=== PATIENT | male | born 1975 | race Caucasian/White ===

== ENCOUNTER 2021-04-23 07:54 | Emergency (ER) | payer BC ==
[2021-04-23 07:58] VITALS: BP 160/104; PULSE 97; RESP 20; TEMP 98.1
[2021-04-23] MEDS ORDERED: SULFAMETH-TMP DS STARTER PACK 2 TAB BTL PO STA (08:06)
--- NOTE | 2021-04-23 08:09 | ED ---
Skin/Abscess/FB HPI - General Chief complaint: Skin/Abscess/Foreign Body Stated complaint: infection on nose Time Seen by Provider: 04/23/21 07:58 Source: patient, RN notes reviewed Mode of arrival: ambulatory Limitations: no limitations - History of Present Illness Initial comments: 46-year-old male presents emergency from chief complaint of nose infection. Patient states started a few days ago. Patient was seen at [facility] and was given Keflex and Bactroban ointment. Patient states that it seems to be worsening. Patient states she's had a history of MRSA. Patient denies any fevers or chills no headache no dizziness no other complaints. - Related Data Previous Rx's Medication Instructions Recorded Sulfamethox-Tmp 800-160Mg [Bactrim 1 each PO Q12HR #20 tab 04/23/21 Ds] Allergies Allergy/AdvReac Type Severity Reaction Status Date / Time aspirin Allergy Rash/Hives Verified 04/23/21 07:58 ibuprofen [From Motrin] Allergy Rash/Hives Verified 04/23/21 07:59 Review of Systems ROS Statement: Those systems with pertinent positive or pertinent negative responses have been documented in the HPI. ROS Other: All systems not noted in ROS Statement are negative. Past Medical History Past Medical History: Diabetes Mellitus, Hypertension History of Any Multi-Drug Resistant Organisms: None Reported Past Surgical History: Orthopedic Surgery Past Psychological History: No Psychological Hx Reported Smoking Status: Never smoker Past Alcohol Use History: Occasional Past Drug Use History: Marijuana General Exam Limitations: no limitations General appearance: alert, in no apparent distress Head exam: Present: atraumatic, normocephalic, normal inspection Eye exam: Present: normal appearance, PERRL, EOMI. Absent: scleral icterus, conjunctival injection, periorbital swelling, periorbital tenderness ENT exam: Present: normal oropharynx, mucous membranes moist, TM's normal bilaterally. Absent: normal exam (Crusting, erythema the nose along the area of the nostrils) Neck exam: Present: normal inspection, full ROM. Absent: tenderness, meningismus, lymphadenopathy Respiratory exam: Present: normal lung sounds bilaterally. Absent: respiratory distress, wheezes, rales, rhonchi, stridor Cardiovascular Exam: Present: regular rate, normal rhythm, normal heart sounds. Absent: systolic murmur, diastolic murmur, rubs, gallop, clicks Course Vital Signs 04/23/21 07:55 Temperature 98.1 F Pulse Rate 97 Respiratory 20 Rate Blood Pressure 160/104 O2 Sat by Pulse 99 Oximetry Medical Decision Making - Medical Decision Making 46-year-old male presented nose infection. Patient has a history of MRSA was started on Bactrim. Patient has been Keflex with no improvement. There is concern as may relate to MRSA. Disposition Clinical Impression: Impetigo Disposition: HOME SELF-CARE Condition: Stable Instructions (If sedation given, give patient instructions): Impetigo (ED) Additional Instructions: Please return to the Emergency Department if symptoms worsen or any other concerns. Prescriptions: Sulfamethox-Tmp 800-160Mg [Bactrim Ds] 1 each PO Q12HR #20 tab Is patient prescribed a controlled substance at d/c from ED?: No Referrals: None,Stated [Primary Care Provider] - 1-2 days Time of Disposition: 08:09
== END 2021-04-23 08:27 | disposition home or self-care (01) ==
LOC: EC 07:54
DX: L01.00 Impetigo, unspecified (principal); I10 Essential (primary) hypertension; E11.9 Type 2 diabetes mellitus without complications; F12.90 Cannabis use, unspecified, uncomplicated
CPT/HCPCS: 99282

== ENCOUNTER 2022-05-06 14:58 | Emergency (ER) | payer BC, OTHER ==
[2022-05-06] MEDS ORDERED: MORPHINE SULFATE 4 MG/ML SYRINGE IV STA (17:38)
[2022-05-06] MEDS ORDERED: SODIUM CHLORIDE 0.9% 1,000 ML IV STA (17:38)
[2022-05-06 18:06] LABS: Basophils # (A) 0.1 k/uL (0-0.2); Basophils % (A) 1 %; Eosinophils # (A) 0.1 k/uL (0-0.7); Eosinophils % (A) 2 %; HCT 44.7 % (39.0-53.0); HGB 14.2 gm/dL (13.0-17.5); Hypochromasia Moderate; Lymphocytes # (A) 1.3 k/uL (1.0-4.8); Lymphocytes % (A) 25 %; MCH 28.7 pg (25.0-35.0); MCHC 31.7 g/dL (31.0-37.0); MCV 90.5 fL (80.0-100.0); Mean Platelet Volume 7.7; Monocytes # (A) 0.3 k/uL (0-1.0); Monocytes % (A) 5 %; Neutrophils # (A) 3.5 k/uL (1.3-7.7); Neutrophils % (A) 65 %; Platelet Count 190 k/uL (150-450); Poikilocytosis Slight; RBC 4.94 m/uL (4.30-5.90); RDW 14.6 % (11.5-15.5); WBC 5.4 k/uL (3.8-10.6)
[2022-05-06 18:17] LABS: INR 0.9 (<1.2); Partial Thromboplastin Time 26.7 sec (22.0-30.0); Prothrombin Time 9.9 sec (9.0-12.0)
[2022-05-06 18:19] LABS: ALT 29 U/L (4-49); AST 27 U/L (17-59); African American GFR (CKD) >90 (>60 ml/min/1.73 sqM); Albumin 4.1 g/dL (3.5-5.0); Alkaline Phosphatase 244 U/L (38-126); Amylase 45 U/L (30-110); Anion Gap 10 mmol/L; Blood Urea Nitrogen 22 mg/dL (9-20); Carbon Dioxide 27 mmol/L (22-30); Chloride 98 mmol/L (98-107); Glucose 343 mg/dL (74-99); Lipase 114 U/L (23-300); Non-African American GFR(CKD) >90 (>60 ml/min/1.73 sqM); Potassium 4.5 mmol/L (3.5-5.1); Sodium 135 mmol/L (137-145); Total Bilirubin 0.7 mg/dL (0.2-1.3); Total Protein 6.4 g/dL (6.3-8.2)
--- NOTE | 2022-05-06 19:54 | CT ---
EXAMINATION TYPE: CT thor lumbar spine w con DATE OF EXAM: 05/06/2022 COMPARISON: None HISTORY: back pain, radiculopathy CT DLP: 4823.4 mGycm Automated exposure control for dose reduction was used. CONTRAST: Performed with IV Contrast, patient injected with 100ml mL of Isovue 300. Images obtained from the level of T12-S1 vertebra with no contrast. The lumbar vertebrae are of normal alignment. Disc spaces are fairly normal. No compression fracture. No lumbar paraspinal mass. There is mild posterior calcified disc herniation at T12-L1. There is sim ilar change at L5-S1. No significant spinal stenosis. No focal bone destruction. Facet joints are int act. IMPRESSION: Chronic posterior disc herniations at T12-L1 and L5-S1 with calcification. No spinal stenosis. No acu te bony abnormality.
--- NOTE | 2022-05-06 20:04 | CT ---
EXAMINATION TYPE: CT abdomen pelvis w con DATE OF EXAM: 05/06/2022 COMPARISON: None HISTORY: abd pain CT DLP: 4823.4 mGycm Automated exposure control for dose reduction was used. CONTRAST: Performed with IV Contrast, patient injected with 100ml mL of Isovue 300. Images obtained from the diaphragm to the floor of the pelvis with the IV contrast. Lung bases are clear. No pleural effusion. Heart size is normal. No pericardial effusion. Liver spleen and stomach pancreas gallbladder appear intact. The bile ducts are nondilated. There is no adrenal mass. Kidneys have normal size and contour. No hydronephrosis. Ureters are not di lated. There is no retroperitoneal adenopathy. Delayed images show normal renal excretion. There is n o evidence of renal mass. Appendix is posterior and appears normal. Bladder distends smoothly. No ing uinal hernia. No free fluid in the pelvis. No pelvic mass. The lumbar vertebrae have normal alignment. No compression fracture. Bony pelvis is intact. The hip j oints are intact. Sacroiliac joints are intact. There is some hip joint space narrowing on the left s rita more than the right. There is acetabular spurring. There is no mesenteric edema. No ascites or free air. No bowel obstruction. IMPRESSION: Normal appendix. No renal stone or obstruction. There is some osteoarthritis left hip joint. No acute abnormality of the abdomen and pelvis.
--- NOTE | 2022-05-06 21:18 | ED ---
General Adult HPI - General Chief complaint: Abdominal Pain Stated complaint: Abdominal Pain Time Seen by Provider: 05/06/22 17:25 Source: patient, RN notes reviewed, old records reviewed Mode of arrival: ambulatory Limitations: no limitations - History of Present Illness Initial comments: Patient is a 47-year-old male who presents emergency Department complaining of abdominal pain/numbness. States that his a past medical history remarkable for diabetes, hypertension as well as chronic back pain presenting with left-sided pain that radiates around towards his epigastric region. States he does have a history of chronic back issues. Is concerned about a pinched nerve. States it is mildly painful but mostly has episodes of intermittent numbness. It has been present for approximate 5 days. Denies any nausea or vomiting. Denies diarrhea or change in stooling. Denies any chest pain, shortness of breath. Denies any fevers, chills, cough. Presents for further evaluation over concern for this atypical abdominal complaint. Uncertain what is causing it. Denies any recent heavy lifting or back injuries.Denies saddle anesthesias, urinary bowel incontinence or retention, lower extremity weakness or numbness. - Related Data Home Medications Medication Instructions Recorded Confirmed Gabapentin [Neurontin] 300 mg PO TID 05/06/22 05/06/22 Losartan Potassium [Cozaar] 100 mg PO DAILY 05/06/22 05/06/22 Piroxicam 10 mg PO DAILY 05/06/22 05/06/22 amLODIPine [Norvasc] 10 mg PO DAILY 05/06/22 05/06/22 metFORMIN HCL [Glucophage] 1,000 mg PO BID 05/06/22 05/06/22 Previous Rx's Medication Instructions Recorded Lidocaine 5% Patch [Lidoderm 5% 1 patch TOPICAL DAILY PRN 7 Days 05/06/22 Patch] #7 patch methocarbamoL [Robaxin-750] 750 mg PO TID PRN 7 Days #21 tab 05/06/22 Allergies Allergy/AdvReac Type Severity Reaction Status Date / Time aspirin Allergy Rash/Hives Verified 05/06/22 18:56 ibuprofen [From Motrin] Allergy Rash/Hives Verified 05/06/22 18:56 Review of Systems ROS Statement: Those systems with pertinent positive or pertinent negative responses have been documented in the HPI. Review of Systems: CONST: Denies fever EYES: Denies blurry vision ENT: Denies nasal congestion C/V: Denies Chest pain RESP: Denies shortness of breath GI: Endorses abdominal pain : Denies dysuria SKIN: Denies rash. MSK: Denies joint pain. NEURO: Denies headache ROS Other: All systems not noted in ROS Statement are negative. Past Medical History Past Medical History: Diabetes Mellitus, Hypertension History of Any Multi-Drug Resistant Organisms: None Reported Past Surgical History: Orthopedic Surgery Past Psychological History: No Psychological Hx Reported Smoking Status: Never smoker Past Alcohol Use History: Occasional Past Drug Use History: Marijuana General Exam - General Exam Comments Initial Comments: General: Appears in no acute distress. HEAD: Normal with no signs of head trauma. EYES: PERRLA, EOMI, conjunctiva normal, no discharge. ENT: Hearing grossly intact, normal oropharynx. RESPIRATORY: Clear breath sounds bilaterally. No wheezes, rales, or rhonchi. C/V: Regular rate and rhythm. S1 and S2 auscultated, no edema, peripheral pulses 2+ and intact throughout ABD: Abdomen is soft, nondistended. Mildly tender to palpation in the epiga stric region, along the inferior most rib radiate around the side of his abdomen towards the spine. No guarding. No peritoneal signs. No rebound tenderness. EXT: Normal range of motion, no obvious deformity no midline cervical, thoracic, lumbar spine tenderness to palpation. Mild paraspinal muscle tenderness palpation in the superior Thoracic and superior lumbar spines. SKIN: No rashes or lesions observed on exposed skin. NEURO: Alert and oriented 4. No focal sensory strength deficits. Limitations: no limitations Course Vital Signs 05/06/22 05/06/22 05/06/22 15:10 18:33 19:30 Temperature 98 F 98.5 F Pulse Rate 55 L 113 H 108 H Respiratory 20 19 14 Rate Blood Pressure 159/102 133/97 152/100 O2 Sat by Pulse 98 97 98 Oximetry 05/06/22 21:27 Temperature 98.1 F Pulse Rate 92 Respiratory 18 Rate Blood Pressure 143/89 O2 Sat by Pulse 97 Oximetry Medical Decision Making - Medical Decision Making Based on the patient's presentation and physical exam, patient appears to be have somewhat of a radiculopathy type of abdominal complaint I'm concerned for possible nerve compression or abdominal muscle wall injury. Cannot rule out intra-abdominal process. Did recommend we obtain CT imaging the abdomen and spine due to his body habitus an unreliable exam. He was in agreement this plan. Also recommended that we obtain abdominal laboratory studies. I will provide him with IV analgesia. He was in agreement with this plan. Screening EKG was obtained and showed no signs of ischemia. CT abdomen and p shanda revealed no acute intra-abdominal process. This osteoarthritis of left hip. Thoracolumbar CT revealed chronic posterior disc herniations at T12-L1 as well as L5-S1 with calcification. No spinal stenosis. No acute bony abnormality. Patient's laboratory studies are remarkable for a high potassium at 343 in the setting of diabetes, and a nonspecific elevated alk phos of 244. The remainder of the labs are unremarkable. On reevaluation, pain is improved. Vital signs are unchanged and within normal limits. I discussed the findings with the patient. There is no clear answer for his current symptoms. Recommended follow-up with his PCP. He expressed understanding. Strict return precautions were discussed. Does appear that he may be experiencing radiculopathy based on imaging, however findings seem to be chronic. I will provide the patient with a prescription for lidocaine patch, Robaxin. I instructed the patient to follow up with their PCP in the next 1-3 days. I explained that the patient should return to the emergency department if they experience any worsening symptoms. Strict return precautions were discussed with the patient. The patient expressed understanding of these instructions. I answered all questions that the patient had. The patient was discharged home in good condition with their prescriptions and follow up information. - Lab Data Result diagrams: 05/06/22 18:01 05/06/22 18:01 Lab Results 05/06/22 05/06/22 05/06/22 Range/Units 18:01 18:01 18:01 WBC 5.4 (3.8-10.6) k/uL RBC 4.94 (4.30-5.90) m/uL Hgb 14.2 (13.0-17.5) gm/dL Hct 44.7 (39.0-53.0) % MCV 90.5 (80.0-100.0) fL MCH 28.7 (25.0-35.0) pg MCHC 31.7 (31.0-37.0) g/dL RDW 14.6 (11.5-15.5) % Plt Count 190 (150-450) k/uL MPV 7.7 Neutrophils % 65 % Lymphocytes % 25 % Monocytes % 5 % Eosinophils % 2 % Basophils % 1 % Neutrophils # 3.5 (1.3-7.7) k/uL Lymphocytes # 1.3 (1.0-4.8) k/uL Monocytes # 0.3 (0-1.0) k/uL Eosinophils # 0.1 (0-0.7) k/uL Basophils # 0.1 (0-0.2) k/uL Hypochromasia Moderate Poikilocytosis Slight PT 9.9 (9.0-12.0) sec INR 0.9 (<1.2) APTT 26.7 (22.0-30.0) sec Sodium 135 L (137-145) mmol/L Potassium 4.5 (3.5-5.1) mmol/L Chloride 98 (98-107) mmol/L Carbon Dioxide 27 (22-30) mmol/L Anion Gap 10 mmol/L BUN 22 H (9-20) mg/dL Creatinine 0.85 (0.66-1.25) mg/dL Est GFR (CKD-EPI)AfAm >90 (>60 ml/min/1.73 sqM) Est GFR (CKD-EPI)NonAf >90 (>60 ml/min/1.73 sqM) Glucose 343 H (74-99) mg/dL Calcium 9.0 (8.4-10.2) mg/dL Total Bilirubin 0.7 (0.2-1.3) mg/dL AST 27 (17-59) U/L ALT 29 (4-49) U/L Alkaline Phosphatase 244 H (38-126) U/L Total Protein 6.4 (6.3-8.2) g/dL Albumin 4.1 (3.5-5.0) g/dL Amylase 45 (30-110) U/L Lipase 114 (23-300) U/L - EKG Data -: EKG Interpreted by Me EKG Comments: 12-lead Electrocardiogram Interpretation Note EKG was reviewed and interpreted by myself. 12-lead ECG performed at 1924 is interpreted by me as revealing sinus tachycardia at a rate of 106 beats per minute. [place] is normal. NE interval is 142 ms, QRS duration is 84 ms, QTc is 409 ms.. There were no ST or T wave abnormalities to suggest myocardial ischemia or injury. R wave progression across the precordium was satisfactory. By my interpretation this EKG is non-diagnostic for acute ischemia. Disposition Clinical Impression: Abdominal wall pain, Radiculopathy, Chronic back pain, Abdominal pain of unknown etiology Disposition: HOME SELF-CARE Condition: Good Instructions (If sedation given, give patient instructions): Paresthesia (ED) Additional Instructions: Suspect you are experiencing radicular nerve pain vs. abd pain of unknown origi n. Return if worsening symptoms. Follow up with your PCP in the next 2-3 days. Prescriptions: Lidocaine 5% Patch [Lidoderm 5% Patch] 1 patch TOPICAL DAILY PRN 7 Days #7 patch PRN Reason: Pain methocarbamoL [Robaxin-750] 750 mg PO TID PRN 7 Days #21 tab PRN Reason: Pain Is patient prescribed a controlled substance at d/c from ED?: No Referrals: None,Stated [Primary Care Provider] - 1-2 days Time of Disposition: 21:00
[2022-05-06 21:28] VITALS: BP 143/89; PULSE 92; RESP 18; TEMP 98.1
== END 2022-05-06 21:28 | disposition home or self-care (01) ==
LOC: EC 14:58
DX: R10.9 Unspecified abdominal pain (principal); M54.14 Radiculopathy, thoracic region; M54.9 Dorsalgia, unspecified; E11.9 Type 2 diabetes mellitus without complications; I10 Essential (primary) hypertension; F12.90 Cannabis use, unspecified, uncomplicated; Z88.6 Allergy status to analgesic agent; Z79.899 Other long term (current) drug therapy
CPT/HCPCS: 36415; 80053; 82150; 83690; 85025; 85610; 85730; 72129; 72132; 74177; 99284; 96374; 96361 ×3; J2270; Q9967

== ENCOUNTER 2022-05-08 10:26 | Inpatient (IN) | payer OTHER ==
[2022-05-08] MEDS ORDERED: SODIUM CHLORIDE 0.9% 500 ML 500 ML IV STA ×2 (10:47→15:35)
--- NOTE | 2022-05-08 10:51 | ED ---
General Adult HPI - General Chief complaint: Neuro Symptoms/Deficit Stated complaint: side pain Time Seen by Provider: 05/08/22 10:30 Source: patient, RN notes reviewed, old records reviewed Mode of arrival: ambulatory Limitations: no limitations - History of Present Illness Initial comments: This 47 her old male presents emergency Department complaining that his right eyelid shut is easily as the left one. Patient states this is been ongoing for 6 days. Patient states he also had some paced difference on the right side of his tongue for the last 6 days. Patient states this morning he woke up and noticed some facial droop of his lip on the right side as we decided to come to the emergency department. Patient denies headache. Patient denies any injury or trauma. He denies any weakness or numbness of any of his extremities. Patient denies any slurred speech. Patient denies any chest pain difficulty breathing shortness of breath. Patient denies any recent fever chills or cough. - Related Data Home Medications Medication Instructions Recorded Confirmed Gabapentin [Neurontin] 300 mg PO TID 05/06/22 05/08/22 Piroxicam 10 mg PO DAILY 05/06/22 05/08/22 metFORMIN HCL [Glucophage] 1,000 mg PO BID 05/06/22 05/08/22 [place]-3/Dha/Epa/Fish Oil [Fish Oil 1 cap PO DAILY 05/08/22 05/08/22 1,000 mg Softgel] Previous Rx's Medication Instructions Recorded Lidocaine 5% Patch [Lidoderm 5% 1 patch TOPICAL DAILY PRN 7 Days 05/06/22 Patch] #7 patch methocarbamoL [Robaxin-750] 750 mg PO TID PRN 7 Days #21 tab 05/06/22 Allergies Allergy/AdvReac Type Severity Reaction Status Date / Time aspirin Allergy Rash/Hives Verified 05/08/22 14:36 ibuprofen [From Motrin] Allergy Rash/Hives Verified 05/08/22 14:36 Review of Systems ROS Statement: Those systems with pertinent positive or pertinent negative responses have been documented in the HPI. ROS Other: All systems not noted in ROS Statement are negative. Past Medical History Past Medical History: Diabetes Mellitus, Hypertension History of Any Multi-Drug Resistant Organisms: None Reported Past Surgical History: Orthopedic Surgery Past Psychological History: No Psychological Hx Reported Smoking Status: Never smoker Past Alcohol Use History: Occasional Past Drug Use History: Marijuana General Exam - General Exam Comments Initial Comments: GENERAL: Patient is well-developed and well-nourished. Patient is nontoxic and well- hydrated and is in no acute distress. ENT: Neck is soft and supple. No significant lymphadenopathy is noted. Oropharynx is clear. Moist mucous membranes. Neck has full range of motion without eliciting any pain. EYES: The sclera were anicteric and conjunctiva were pink and moist. Extraocular movements were intact and pupils were equal round and reactive to light. Eyelids were unremarkable. PULMONARY: Unlabored respirations. Good breath sounds bilaterally. No audible rales rhonchi or wheezing was noted. CARDIOVASCULAR: There is a regular rate and rhythm without any murmurs gallops or rubs. ABDOMEN: Soft and nontender with normal bowel sounds. SKIN: Skin is clear with no lesions or rashes and otherwise unremarkable. NEUROLOGIC: Patient is alert and oriented x3. Patient has facial droop on the right side his eyelid is not short is quickly or easily as the left his forehead involvement and the right side of his face including his lip droop. Motor and sensory are also intact. Normal speech, volume and content. Symmetrical smile. MUSCULOSKELETAL: Normal extremities with adequate strength and full range of motion. LYMPHATICS: No significant lymphadenopathy is noted PSYCHIATRIC: Normal psychiatric evaluation. Limitations: no limitations Course Vital Signs 05/08/22 05/08/22 05/08/22 10:28 10:50 12:05 Temperature 97.9 F Pulse Rate 116 H 129 H 120 H Respiratory 18 18 18 Rate Blood Pressure 146/97 180/109 160/58 O2 Sat by Pulse 99 98 99 Oximetry 05/08/22 05/08/22 05/08/22 14:12 14:48 15:14 Temperature Pulse Rate 105 H 110 H 100 Respiratory 20 16 16 Rate Blood Pressure 167/102 182/97 159/91 O2 Sat by Pulse 99 99 99 Oximetry Medical Decision Making - Medical Decision Making EKG shows sinus tachycardia at 109 bpm GA interval 142 QRS is 95 Q-T intervals 335 QTC is 399. Patient's EKG shows no ST segment elevation or depression. CT of the brain shows no acute abnormality. Skin shows no acute abnormalities. Patient's heart rate at rest sleeping was 105 210 beats a minute. Patient had elevated blood pressure. Patient sugar close to 600 and patient states he does not have any medications at this time and doesn't feel comfortable going home. I spoke with Ean matta to hospice agreed to admit the patient and the patient wrote admitting orders. - Lab Data Result diagrams: 05/08/22 10:50 05/08/22 10:50 Lab Results 05/08/22 05/08/22 05/08/22 Range/Units 10:50 10:50 10:50 WBC 3.7 L (3.8-10.6) k/uL RBC 4.70 (4.30-5.90) m/uL Hgb 13.2 (13.0-17.5) gm/dL Hct 42.9 (39.0-53.0) % MCV 91.2 (80.0-100.0) fL MCH 28.1 (25.0-35.0) pg MCHC 30.9 L (31.0-37.0) g/dL RDW 14.6 (11.5-15.5) % Plt Count 157 (150-450) k/uL MPV 7.9 Neutrophils % 64 % Lymphocytes % 24 % Monocytes % 6 % Eosinophils % 2 % Basophils % 1 % Neutrophils # 2.4 (1.3-7.7) k/uL Lymphocytes # 0.9 L (1.0-4.8) k/uL Monocytes # 0.2 (0-1.0) k/uL Eosinophils # 0.1 (0-0.7) k/uL Basophils # 0.1 (0-0.2) k/uL Hypochromasia Marked Poikilocytosis Slight PT 9.6 (9.0-12.0) sec INR 0.9 (<1.2) APTT 25.5 (22.0-30.0) sec Sodium 132 L (137-145) mmol/L Potassium 4.6 (3.5-5.1) mmol/L Chloride 100 (98-107) mmol/L Carbon Dioxide 24 (22-30) mmol/L Anion Gap 8 mmol/L BUN 17 (9-20) mg/dL Creatinine 0.71 (0.66-1.25) mg/dL Est GFR (CKD-EPI)AfAm >90 (>60 ml/min/1.73 sqM) Est GFR (CKD-EPI)NonAf >90 (>60 ml/min/1.73 sqM) Glucose 592 H* (74-99) mg/dL POC Glucose (mg/dL) (70-110) mg/dL POC Glu Ticketer ID Calcium 8.8 (8.4-10.2) mg/dL Total Bilirubin 0.7 (0.2-1.3) mg/dL AST 28 (17-59) U/L ALT 26 (4-49) U/L Alkaline Phosphatase 278 H (38-126) U/L Troponin I (0.000-0.034) ng/mL Total Protein 5.8 L (6.3-8.2) g/dL Albumin 3.5 (3.5-5.0) g/dL Urine Opiates Screen (NotDetected) Ur Oxycodone Screen (NotDetected) Urine Methadone Screen (NotDetected) Ur Propoxyphene Screen (NotDetected) Ur Barbiturates Screen (NotDetected) U Tricyclic Antidepress (NotDetected) Ur Phencyclidine Scrn (NotDetected) Ur Amphetamines Screen (NotDetected) U Methamphetamines Scrn (NotDetected) U Benzodiazepines Scrn (NotDetected) Urine Cocaine Screen (NotDetected) U Marijuana (THC) Screen (NotDetected) 05/08/22 05/08/22 05/08/22 Range/Units 10:50 12:38 13:53 WBC (3.8-10.6) k/uL RBC (4.30-5.90) m/uL Hgb (13.0-17.5) gm/dL Hct (39.0-53.0) % MCV (80.0-100.0) fL MCH (25.0-35.0) pg MCHC (31.0-37.0) g/dL RDW (11.5-15.5) % Plt Count (150-450) k/uL MPV Neutrophils % % Lymphocytes % % Monocytes % % Eosinophils % % Basophils % % Neutrophils # (1.3-7.7) k/uL Lymphocytes # (1.0-4.8) k/uL Monocytes # (0-1.0) k/uL Eosinophils # (0-0.7) k/uL Basophils # (0-0.2) k/uL Hypochromasia Poikilocytosis PT (9.0-12.0) sec INR (<1.2) APTT (22.0-30.0) sec Sodium (137-145) mmol/L Potassium (3.5-5.1) mmol/L Chloride (98-107) mmol/L Carbon Dioxide (22-30) mmol/L Anion Gap mmol/L BUN (9-20) mg/dL Creatinine (0.66-1.25) mg/dL Est GFR (CKD-EPI)AfAm (>60 ml/min/1.73 sqM) Est GFR (CKD-EPI)NonAf (>60 ml/min/1.73 sqM) Glucose (74-99) mg/dL POC Glucose (mg/dL) 479 H 386 H (70-110) mg/dL POC Glu Ticketer ID Deisi, Casimiro [place], Casimiro Calcium (8.4-10.2) mg/dL Total Bilirubin (0.2-1.3) mg/dL AST (17-59) U/L ALT (4-49) U/L Alkaline Phosphatase (38-126) U/L Troponin I <0.012 (0.000-0.034) ng/mL Total Protein (6.3-8.2) g/dL Albumin (3.5-5.0) g/dL Urine Opiates Screen (NotDetected) Ur Oxycodone Screen (NotDetected) Urine Methadone Screen (NotDetected) Ur Propoxyphene Screen (NotDetected) Ur Barbiturates Screen (NotDetected) U Tricyclic Antidepress (NotDetected) Ur Phencyclidine Scrn (NotDetected) Ur Amphetamines Screen (NotDetected) U Methamphetamines Scrn (NotDetected) U Benzodiazepines Scrn (NotDetected) Urine Cocaine Screen (NotDetected) U Marijuana (THC) Screen (NotDetected) 05/08/22 Range/Units 15:32 WBC (3.8-10.6) k/uL RBC (4.30-5.90) m/uL Hgb (13.0-17.5) gm/dL Hct (39.0-53.0) % MCV (80.0-100.0) fL MCH (25.0-35.0) pg MCHC (31.0-37.0) g/dL RDW (11.5-15.5) % Plt Count (150-450) k/uL MPV Neutrophils % % Lymphocytes % % Monocytes % % Eosinophils % % Basophils % % Neutrophils # (1.3-7.7) k/uL Lymphocytes # (1.0-4.8) k/uL Monocytes # (0-1.0) k/uL Eosinophils # (0-0.7) k/uL Basophils # (0-0.2) k/uL Hypochromasia Poikilocytosis PT (9.0-12.0) sec INR (<1.2) APTT (22.0-30.0) sec Sodium (137-145) mmol/L Potassium (3.5-5.1) mmol/L Chloride (98-107) mmol/L Carbon Dioxide (22-30) mmol/L Anion Gap mmol/L BUN (9-20) mg/dL Creatinine (0.66-1.25) mg/dL Est GFR (CKD-EPI)AfAm (>60 ml/min/1.73 sqM) Est GFR (CKD-EPI)NonAf (>60 ml/min/1.73 sqM) Glucose (74-99) mg/dL POC Glucose (mg/dL) (70-110) mg/dL POC Glu Ticketer ID Calcium (8.4-10.2) mg/dL Total Bilirubin (0.2-1.3) mg/dL AST (17-59) U/L ALT (4-49) U/L Alkaline Phosphatase (38-126) U/L Troponin I (0.000-0.034) ng/mL Total Protein (6.3-8.2) g/dL Albumin (3.5-5.0) g/dL Urine Opiates Screen Not Detected (NotDetected) Ur Oxycodone Screen Not Detected (NotDetected) Urine Methadone Screen Not Detected (NotDetected) Ur Propoxyphene Screen Not Detected (NotDetected) Ur Barbiturates Screen Not Detected (NotDetected) U Tricyclic Antidepress Not Detected (NotDetected) Ur Phencyclidine Scrn Not Detected (NotDetected) Ur Amphetamines Screen Not Detected (NotDetected) U Methamphetamines Scrn Not Detected (NotDetected) U Benzodiazepines Scrn Not Detected (NotDetected) Urine Cocaine Screen Not Detected (NotDetected) U Marijuana (THC) Screen Not Detected (NotDetected) Disposition Clinical Impression: Facial droop, Hypertension, Hyperglycemia, Tachycardia Disposition: ADMITTED IP TO THIS HOSP Referrals: None,Stated [Primary Care Provider] - 1-2 days Time of Disposition: 15:56
[2022-05-08 11:09] LABS: Basophils # (A) 0.1 k/uL (0-0.2); Basophils % (A) 1 %; Eosinophils # (A) 0.1 k/uL (0-0.7); Eosinophils % (A) 2 %; HCT 42.9 % (39.0-53.0); HGB 13.2 gm/dL (13.0-17.5); Hypochromasia Marked; Lymphocytes # (A) 0.9 k/uL (1.0-4.8); Lymphocytes % (A) 24 %; MCH 28.1 pg (25.0-35.0); MCHC 30.9 g/dL (31.0-37.0); MCV 91.2 fL (80.0-100.0); Mean Platelet Volume 7.9; Monocytes # (A) 0.2 k/uL (0-1.0); Monocytes % (A) 6 %; Neutrophils # (A) 2.4 k/uL (1.3-7.7); Neutrophils % (A) 64 %; Platelet Count 157 k/uL (150-450); Poikilocytosis Slight; RDW 14.6 % (11.5-15.5); WBC 3.7 k/uL (3.8-10.6)
--- NOTE | 2022-05-08 11:13 | XR ---
EXAMINATION TYPE: XR chest 2V DATE OF EXAM: 05/08/2022 11:05 AM COMPARISON: None TECHNIQUE: XR chest 2V two-view. CLINICAL INDICATION:Male, 47 years old with history of altered mental status; FINDINGS: Lungs/Pleura: Low lung volumes are present. There is no evidence of pleural effusion, focal consolida tion, or pneumothorax. Pulmonary vascularity: Unremarkable. Heart/mediastinum: Cardiomediastinal silhouette is unremarkable. Musculoskeletal: No acute osseous pathology. IMPRESSION: No acute cardiopulmonary disease/process.
--- NOTE | 2022-05-08 11:16 | CT ---
EXAMINATION TYPE: CT brain wo con CT DLP: 1095.4 mGycm, Automated exposure control for dose reduction was used. DATE OF EXAM: 05/08/2022 11:05 AM COMPARISON: None. CLINICAL INDICATION:Male, 47 years old with history of Neuro deficit, acute, stroke suspected, Right eye droop and right tongue/mouth numbness TECHNIQUE: Brain: Axial CT images of the brain were obtained with coronal and sagittal reformats created and rev iewed. Contrast used: None. Oral contrast used: None. FINDINGS: Brain: Extra-axial spaces: No abnormal extra-axial fluid collections. Ventricular system: Within normal limits Cerebral parenchyma: No acute intraparenchymal hemorrhage or mass effect. The ford-white junction is well differentiated. Cerebellum: Unremarkable. Mass effect: No evidence of midline shift. Intracranial vasculature: Atherosclerotic calcifications of the intracranial vessels. Soft tissues: Normal. Calvarium/osseous structures: No depressed skull fracture. Paranasal sinuses and mastoid air cells: Mild scattered paranasal sinus disease. Visualized orbits: Orbital contents are intact. IMPRESSION: No acute intracranial process.
[2022-05-08 11:18] LABS: ALT 26 U/L (4-49); AST 28 U/L (17-59); African American GFR (CKD) >90 (>60 ml/min/1.73 sqM); Albumin 3.5 g/dL (3.5-5.0); Alkaline Phosphatase 278 U/L (38-126); Anion Gap 8 mmol/L; Blood Urea Nitrogen 17 mg/dL (9-20); Calcium 8.8 mg/dL (8.4-10.2); Carbon Dioxide 24 mmol/L (22-30); Chloride 100 mmol/L (98-107); Non-African American GFR(CKD) >90 (>60 ml/min/1.73 sqM); Potassium 4.6 mmol/L (3.5-5.1); Sodium 132 mmol/L (137-145); Total Bilirubin 0.7 mg/dL (0.2-1.3); Total Protein 5.8 g/dL (6.3-8.2)
[2022-05-08 11:21] LABS: Glucose 592 mg/dL (74-99)
[2022-05-08] MEDS ORDERED: INSULIN ASPART (NovoLOG) 100 UNIT/ML VIAL SQ ONE (11:23)
[2022-05-08 11:26] LABS: INR 0.9 (<1.2); Partial Thromboplastin Time 25.5 sec (22.0-30.0); Prothrombin Time 9.6 sec (9.0-12.0)
[2022-05-08] MEDS ORDERED: SODIUM CHLORIDE 0.9% 1,000 ML IV STA (12:15)
[2022-05-08 12:46] LABS: Glucose,Whole Blood 479 mg/dL (70-110)
[2022-05-08 13:55] LABS: Glucose,Whole Blood 386 mg/dL (70-110)
[2022-05-08] MEDS ORDERED: GABAPENTIN 300 MG CAP PO STA (13:56)
[2022-05-08] MEDS ORDERED: HYDROmorphone 0.5 MG/0.5 ML SYRINGE IVP STA (14:12)
[2022-05-08] MEDS ORDERED: hydrALAZINE HCL 20 MG/ML 1 ML VIAL IVP STA ×2 (14:12→16:08)
[2022-05-08 15:47] LABS: Amphetamine Screen,Urine Not Detected (NotDetected); Barbiturate Screen,Urine Not Detected (NotDetected); Benzodiazepines Screen,Urine Not Detected (NotDetected); Cocaine Screen,Urine Not Detected (NotDetected); Methadone Screen, Urine Not Detected (NotDetected); Opiate Screen,Urine Not Detected (NotDetected); Oxycodone Screen, Urine Not Detected (NotDetected); Phencyclidine Screen,Urine Not Detected (NotDetected); Tricyclic Antidepressant,Urine Not Detected (NotDetected); Urn Cannabinoid Scrn Not Detected (NotDetected)
[2022-05-08 16:09] LABS: Glucose,Whole Blood 323 mg/dL (70-110)
[2022-05-08] MEDS ORDERED: DEXTROSE 50% SYRINGE 50 ML IVP PRN ×2 (16:11)
[2022-05-08] MEDS: valACYclovir HCL 1,000 MG TABLET PO SCH ×2 (18:35→21:56)
[2022-05-08 18:41] LABS: Glucose,Whole Blood 283 mg/dL (70-110)
[2022-05-08] MEDS: INSULIN ASPART (NovoLOG) 100 UNIT/ML VIAL SQ SCH ×3 (18:51→21:32)
[2022-05-08 19:46] LABS: Glucose,Whole Blood 299 mg/dL (70-110)
[2022-05-08] MEDS: metFORMIN 500 MG TAB PO SCH (21:31)
[2022-05-08] MEDS: GABAPENTIN 300 MG CAP PO SCH (21:32)
[2022-05-08] MEDS: HYDROcodone/APAP 5-325MG 1 EACH TAB PO PRN (21:33)
[2022-05-09] MEDS: HYDROcodone/APAP 5-325MG 1 EACH TAB PO PRN (04:13)
[2022-05-09 05:56] LABS: Glucose,Whole Blood 278 mg/dL (70-110)
[2022-05-09] MEDS: valACYclovir HCL 1,000 MG TABLET PO SCH (08:51)
[2022-05-09] MEDS: metFORMIN 500 MG TAB PO SCH (08:51)
[2022-05-09] MEDS: GABAPENTIN 300 MG CAP PO SCH (08:51)
[2022-05-09] MEDS: INSULIN ASPART (NovoLOG) 100 UNIT/ML VIAL SQ SCH ×3 (08:51→12:30)
[2022-05-09] MEDS ORDERED: amLODIPine 10 MG TAB PO SCH (09:00)
[2022-05-09] MEDS ORDERED: SODIUM CHLORIDE 0.9% 1,000 ML IV SCH (10:00)
[2022-05-09] MEDS ORDERED: LOSARTAN 50 MG TAB PO SCH (10:15)
[2022-05-09 10:33] VITALS: TEMP 97.6
[2022-05-09 11:42] LABS: Glucose,Whole Blood 297 mg/dL (70-110)
[2022-05-09] MEDS ORDERED: ARTIFICIAL TEARS OINTMENT 3.5 GM TUBE BOTH EYES PRN (11:53)
--- NOTE | 2022-05-09 12:00 | P.HPIM ---
History of Present Illness Patient is a pleasant 47-year-old male came in with complaints of unable to close his right eyelid facial droop right earache and loss of taste sensation in the time. 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 Patient doesn't have any lesions consistent with herpes. Patient is also found to have highly elevated blood sugars as patient has not been complaint with his medications due to noncoverage for some of his diabetic medications by his insurance. Patient the stopped checking the blood sugars as well. Patient also having significant back pain patient has history of spinal stenosis. Patient has a continuous glucose monitor which she stopped using because of pain related to placement of this device. Patient denied any fever chills. Patient is also hypertensive. Patient has been taking quite a bit of gabapentin because of his neuropathic symptoms from his spinal stenosis. Patient has been taking metformin. REVIEW OF SYSTEMS: CONSTITUTIONAL: No fever, no malaise, no fatigue. HEENT: No recent visual problems or hearing problems. Denied any sore throat. CARDIOVASCULAR: No chest pain, orthopnea, PND, no palpitations, no syncope. PULMONARY: No shortness of breath, no cough, no hemoptysis. GASTROINTESTINAL: No diarrhea, no nausea, no vomiting, no abdominal pain. NEUROLOGICAL: As mentioned above HEMATOLOGICAL: Denies any bleeding or petechiae. GENITOURINARY: Denies any burning micturition, frequency, or urgency. MUSCULOSKELETAL/RHEUMATOLOGICAL: Denies any joint pain, swelling, or any muscle pain. ENDOCRINE: Denies any polyuria or polydipsia. The rest of the 14-point review of systems is negative. PHYSICAL EXAMINATION: GENERAL: The patient is alert and oriented x3, not in any acute distress. Well developed, well nourished. HEENT: Pupils are round and equally reacting to light. EOMI. No scleral icterus. No conjunctival pallor. Normocephalic, atraumatic. No pharyngeal erythema. No thyromegaly. CARDIOVASCULAR: S1 and S2 present. No murmurs, rubs, or gallops. PULMONARY: Chest is clear to auscultation, no wheezing or crackles. ABDOMEN: Soft, nontender, nondistended, normoactive bowel sounds. No palpable or ganomegaly. MUSCULOSKELETAL: No joint swelling or deformity. EXTREMITIES: No cyanosis, clubbing, or pedal edema. NEUROLOGICAL: Facial droop some of the neurodeficits as mentioned in HPI SKIN: No rashes. 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 Considering his highly irritable blood sugars and will not use any steroid at this time. -Type 2 diabetes mellitus uncontrolled highly elevated blood sugars secondary to noncompliance patient will be started empirically on 30 units of Lantus along with 8 units with the each meal and patient will let continue his continuous blood glucose monitoring patient will be referred to PCP and endocrinology as an outpatient -Chronic back pain with history of spinal stenosis patient will be referred to spinal surgeon as an outpatient -Hypertension next and-obesity counseling was provided regarding weight loss. Patient did lose 30 pounds this summer. Patient probably will be discharged later today if cleared by neurology. Past Medical History Past Medical History: Diabetes Mellitus, Hyperlipidemia, Hypertension History of Any Multi-Drug Resistant Organisms: None Reported Past Surgical History: Orthopedic Surgery Additional Past Surgical History / Comment(s): Had L thumb reattached as a kid. Additional Past Anesthesia/Blood Transfusion Reaction / Comment(s): No hx of blood transfusion Past Psychological History: No Psychological Hx Reported Smoking Status: Never smoker Past Alcohol Use History: Occasional Additional Past Alcohol Use History / Comment(s): Social Drinker Past Drug Use History: Marijuana Additional Drug Use History / Comment(s): "I take 3-4 puffs from my pen, 3-4 days a week, usually at night to help me sleep d/t pain." - Past Family History Father Family Medical History: Congestive Heart Failure (CHF), Diabetes Mellitus, Hypertension Mother Family Medical History: Hypertension Additional Family Medical History / Comment(s): Patients Grandmother had first CVA at 38, CVA at 43. Patients Aunt on mothers side has had multiple PEs and DVTs Brother(s) Family Medical History: CVA/TIA Additional Family Medical History / Comment(s): CVA at 44 Sister(s) Family Medical History: No Reported History Medications and Allergies Home Medications Medication Instructions Recorded Confirmed Type Gabapentin [Neurontin] 300 mg PO TID 05/06/22 05/08/22 History Lidocaine 5% Patch [Lidoderm 5% 1 patch TOPICAL DAILY PRN 7 Days 05/06/22 05/08/22 Rx Patch] #7 patch Piroxicam 10 mg PO DAILY 05/06/22 05/08/22 History metFORMIN HCL [Glucophage] 1,000 mg PO BID 05/06/22 05/08/22 History methocarbamoL [Robaxin-750] 750 mg PO TID PRN 7 Days #21 tab 05/06/22 05/08/22 Rx [employer]-3/Dha/Epa/Fish Oil [Fish Oil 1 cap PO DAILY 05/08/22 05/08/22 History 1,000 mg Softgel] Allergies Allergy/AdvReac Type Severity Reaction Status Date / Time aspirin Allergy Rash/Hives Verified 05/08/22 14:36 ibuprofen [From Motrin] Allergy Rash/Hives Verified 05/08/22 14:36 Physical Exam Vitals: Vital Signs Temp Pulse Pulse Resp BP BP Pulse Ox 05/09/22 08:00 97.6 F 91 18 125/79 100 05/09/22 07:57 99 05/09/22 04:00 98.1 F 97 20 135/85 99 05/08/22 23:40 99.3 F 99 18 137/89 97 05/08/22 21:55 161/92 05/08/22 20:55 98.9 F 101 H 20 168/97 99 05/08/22 17:00 98.6 F 109 H 20 148/88 99 05/08/22 16:55 102 H 20 165/98 98 05/08/22 16:31 102 H 16 184/96 98 05/08/22 15:14 100 16 159/91 99 05/08/22 14:48 110 H 16 182/97 99 05/08/22 14:12 105 H 20 167/102 99 05/08/22 12:05 120 H 18 160/58 99 Intake and Output 05/08/22 05/09/22 05/09/22 22:59 06:59 14:59 Intake Total 610 618 Balance 610 618 Intake: IV 10 Invasive Line 1 10 Oral 600 618 Other: Voiding Method Toilet Toilet Toilet # Voids 1 Weight 139.1 kg Results CBC & Chem 7: 05/08/22 10:50 05/08/22 10:50 Labs: Abnormal Lab Results - Last 24 Hours (Table) 05/08/22 05/08/22 05/08/22 Range/Units 10:50 12:38 13:53 POC Glucose (mg/dL) 479 H 386 H (70-110) mg/dL Hemoglobin A1c 10.9 H (0.0-6.0) % Triglycerides (0.00-149.00) mg/dL VLDL Cholesterol, Calc (5.00-40.00) mg/dL HDL Cholesterol (40.00-60.00) mg/dL 05/08/22 05/08/22 05/08/22 Range/Units 16:06 18:39 18:40 POC Glucose (mg/dL) 323 H 283 H (70-110) mg/dL Hemoglobin A1c 10.9 H (0.0-6.0) % Triglycerides (0.00-149.00) mg/dL VLDL Cholesterol, Calc (5.00-40.00) mg/dL HDL Cholesterol (40.00-60.00) mg/dL 05/08/22 05/09/22 05/09/22 Range/Units 19:44 05:52 06:14 POC Glucose (mg/dL) 299 H 278 H (70-110) mg/dL Hemoglobin A1c (0.0-6.0) % Triglycerides 302.00 H (0.00-149.00) mg/dL VLDL Cholesterol, Calc 60.40 H (5.00-40.00) mg/dL HDL Cholesterol 12.60 L (40.00-60.00) mg/dL 05/09/22 Range/Units 11:35 POC Glucose (mg/dL) 297 H (70-110) mg/dL Hemoglobin A1c (0.0-6.0) % Triglycerides (0.00-149.00) mg/dL VLDL Cholesterol, Calc (5.00-40.00) mg/dL HDL Cholesterol (40.00-60.00) mg/dL Thrombosis Risk Factor Assmnt - Choose All That Apply Each Factor Represents 1 point: Age 41-60 years, Obesity (BMI >25) Other Risk Factors: Yes Each Risk Factor Represents 3 Points: Family history of DVT/PE Other congenital or acquired thrombophilia - If yes, enter type in comment: No Thrombosis Risk Factor Assessment Total Risk Factor Score: 5 Thrombosis Risk Factor Assessment Level: High Risk
--- NOTE | 2022-05-09 12:09 | P.DS ---
Providers Date of admission: 05/08/22 15:58 Attending physician: Melany Henley Consults: 05/08/22 16:05 Consult Physician Routine Consulting Provider: Hayden Nicole Consult Reason/Comments: Facial droop Do you want consulting provider notified?: Yes Primary care physician: Stated None Hospital Course: Refer to my history of present illness for further details Plan - Discharge Summary Discharge Rx Participant: No New Discharge Prescriptions: New Losartan [Cozaar] 50 mg PO DAILY #30 tab INSULIN ASPART (NovoLOG) [NovoLOG (formulary)] 8 unit SQ AC-TID #5 pen Insulin Glargine,Hum.rec.anlog [Lantus Solostar Pen] 30 units SQ DAILY #5 pen HYDROcodone/APAP 5-325MG [[place] 5-325] 1 each PO Q8HR PRN #20 tab PRN Reason: Pain Artificial Tears Ointment [Lubrifresh Pm Ointment] 1 gm OPHTHALMIC QID #3.5 gm INSULIN ASPART (NovoLOG) [NovoLOG (formulary)] 0 unit SQ ACHS #1 pen Continue metFORMIN HCL [Glucophage] 1,000 mg PO BID Piroxicam 10 mg PO DAILY Gabapentin [Neurontin] 300 mg PO TID Lidocaine 5% Patch [Lidoderm 5% Patch] 1 patch TOPICAL DAILY PRN 7 Days #7 patch PRN Reason: Pain methocarbamoL [Robaxin-750] 750 mg PO TID PRN 7 Days #21 tab PRN Reason: Pain [place]-3/Dha/Epa/Fish Oil [Fish Oil 1,000 mg Softgel] 1 cap PO DAILY Discharge Medication List Gabapentin [Neurontin] 300 mg PO TID 05/06/22 [History] Lidocaine 5% Patch [Lidoderm 5% Patch] 1 patch TOPICAL DAILY PRN 7 Days #7 patch 05/06/22 [Rx] Piroxicam 10 mg PO DAILY 05/06/22 [History] metFORMIN HCL [Glucophage] 1,000 mg PO BID 05/06/22 [History] methocarbamoL [Robaxin-750] 750 mg PO TID PRN 7 Days #21 tab 05/06/22 [Rx] [place]-3/Dha/Epa/Fish Oil [Fish Oil 1,000 mg Softgel] 1 cap PO DAILY 05/08/22 [History] Artificial Tears Ointment [Lubrifresh Pm Ointment] 1 gm OPHTHALMIC QID #3.5 gm 05/09/22 [Rx] HYDROcodone/APAP 5-325MG [[place] 5-325] 1 each PO Q8HR PRN #20 tab 05/09/22 [Rx] INSULIN ASPART (NovoLOG) [NovoLOG (formulary)] 0 unit SQ ACHS #1 pen 05/09/22 [Rx] INSULIN ASPART (NovoLOG) [NovoLOG (formulary)] 8 unit SQ AC-TID #5 pen 05/09/22 [Rx] Insulin Glargine,Hum.rec.anlog [Lantus Solostar Pen] 30 units SQ DAILY #5 pen 05/09/22 [Rx] Losartan [Cozaar] 50 mg PO DAILY #30 tab 05/09/22 [Rx] Follow up Appointment(s)/Referral(s): Camille Bhakta MD [STAFF PHYSICIAN] - 1 Week Aden Israel DO [Doctor of Osteopathic Medicine] - 1 Week Chuy Mulligan MD [REFERRING] - 1 Week Discharge Disposition: HOME SELF-CARE
[2022-05-09] MEDS ORDERED: INSULIN ASPART (NovoLOG) 100 UNIT/ML VIAL SQ SCH (12:30)
[2022-05-09 12:38] VITALS: BMI 42.7
--- NOTE | 2022-05-09 12:47 | P.CNNES ---
History of Present Illness Consult date: 05/09/22 Requesting physician: Kenan Cope Reason for Consult: Facial droop History of Present Illness: Patient is a 47-year-old male, with history of diabetes, not well controlled, came to the hospital yesterday at 10:26 AM for possible right facial weakness. Patient states that about 1-1/2 weeks ago, he noticed problem with taste sensation, as everything tasted bland. Around the same time, he also noticed his hearing was muffled, right ear more than left. About 4 or 5 days ago, he noticed pain in the retro-auricular region. he denies any recent flu or cold- like symptoms. Patient states that he came to the hospital on Monday, because of worsening of back pain, numbness of the left abdominal region. he was diag nosed with abdominal wall pain, radiculopathy, chronic back pain. Patient states that it was noticed in the ER that he was not closing his right eye as well. He was released home. He slept most of Monday. Monday morning he also noticed that he has droopy right lower lip. Therefore he came back to the hospital. Patient denies any problem with balance, any focal weakness of the extremities, problem with the vision, slurred speech. He does have history of hypertension, diabetes for last 10 years, which is not well controlled. He states that metformin is is not helping, and the medication Trulicity he cannot afford. Vital signs on arrival blood pressure 146/97, pulse regular and 16, temperature 97.9 Patient's blood test shows WBC count 3.7 hemoglobin 13.2, platelets 157. PT/PTT normal. Sodium 132 potassium 4.6, normal renal functions. Blood glucose 592. Hepatic panel normal, troponin negative. Patient's hemoglobin A1c 10.9, lactate 0.9, urine drug screen negative. CT head showed no acute process. I personally review CT head, and agree with the findings. Mild mucosal thickening of the left maxillary sinus. There is evidence of an old lacune involving the left basal ganglia. EKG shows sinus tachycardia. Chest x-ray showed no acute cardiopulmonary disease. Patient's home medications include metformin, piroxicam 10 mg, gabapentin 300 mg 3 times a day, Lidoderm 5% patch, Robaxin 750 mg, fish oil. Patient says that he has positive family history of strokes, in his maternal grandmother who had a stroke at age 38 and his brother, who had stroke at age 44. Patient denies any tobacco use. Patient also tells me that about one year ago, he developed weakness and numbness of the entire right upper extremity. His hand was so weak that he could not open the pop bottle. The symptoms lasted for about 1 month and then the symptoms went away. Currently he has no symptoms in his right arm. Suspect, could be a small stroke at that time. Review of Systems patient states he had transient tingling in the tongue, which has resolved. Denies any chest pain, shortness of breath, wheezing or cough. No fever or chills. Patient denies any significant neck pain. He does have back pain. All other review of systems reviewed, and unremarkable, except above and as per HPI. Past Medical History Past Medical History: Diabetes Mellitus, Hyperlipidemia, Hypertension History of Any Multi-Drug Resistant Organisms: None Reported Past Surgical History: Orthopedic Surgery Additional Past Surgical History / Comment(s): Had L thumb reattached as a kid. Additional Past Anesthesia/Blood Transfusion Reaction / Comment(s): No hx of blood transfusion Past Psychological History: No Psychological Hx Reported Smoking Status: Never smoker Past Alcohol Use History: Occasional Additional Past Alcohol Use History / Comment(s): Social Drinker Past Drug Use History: Marijuana Additional Drug Use History / Comment(s): "I take 3-4 puffs from my pen, 3-4 days a week, usually at night to help me sleep d/t pain." - Past Family History Father Family Medical History: Congestive Heart Failure (CHF), Diabetes Mellitus, Hypertension Mother Family Medical History: Hypertension Additional Family Medical History / Comment(s): Patients Grandmother had first CVA at 38, CVA at 43. Patients Aunt on mothers side has had multiple PEs and DVTs Brother(s) Family Medical History: CVA/TIA Additional Family Medical History / Comment(s): CVA at 44 Sister(s) Family Medical History: No Reported History Medications and Allergies Home Medications Medication Instructions Recorded Confirmed Type Gabapentin [Neurontin] 300 mg PO TID 05/06/22 05/08/22 History Lidocaine 5% Patch [Lidoderm 5% 1 patch TOPICAL DAILY PRN 7 Days 05/06/22 05/08/22 Rx Patch] #7 patch Piroxicam 10 mg PO DAILY 05/06/22 05/08/22 History metFORMIN HCL [Glucophage] 1,000 mg PO BID 05/06/22 05/08/22 History methocarbamoL [Robaxin-750] 750 mg PO TID PRN 7 Days #21 tab 05/06/22 05/08/22 Rx [place]-3/Dha/Epa/Fish Oil [Fish Oil 1 cap PO DAILY 05/08/22 05/08/22 History 1,000 mg Softgel] Artificial Tears Ointment 1 gm OPHTHALMIC QID #3.5 gm 05/09/22 Rx [Lubrifresh Pm Ointment] HYDROcodone/APAP 5-325MG [[place] 1 each PO Q8HR PRN #20 tab 05/09/22 Rx 5-325] INSULIN ASPART (NovoLOG) [NovoLOG 0 unit SQ ACHS #1 pen 05/09/22 Rx (formulary)] INSULIN ASPART (NovoLOG) [NovoLOG 8 unit SQ AC-TID #5 pen 05/09/22 Rx (formulary)] Insulin Glargine,Hum.rec.anlog 30 units SQ DAILY #5 pen 05/09/22 Rx [Lantus Solostar Pen] Losartan [Cozaar] 50 mg PO DAILY #30 tab 05/09/22 Rx valACYclovir HCL [Valtrex] 1,000 mg PO TID #20 tab 05/09/22 Rx Allergies Allergy/AdvReac Type Severity Reaction Status Date / Time aspirin Allergy Rash/Hives Verified 05/08/22 14:36 ibuprofen [From Motrin] Allergy Rash/Hives Verified 05/08/22 14:36 Physical Examination - Vital Signs Vital Signs: Vital Signs Temp Pulse Pulse Resp BP BP Pulse Ox 05/09/22 07:57 99 05/09/22 04:00 98.1 F 97 20 135/85 99 05/08/22 23:40 99.3 F 99 18 137/89 97 05/08/22 21:55 161/92 05/08/22 20:55 98.9 F 101 H 20 168/97 99 05/08/22 17:00 98.6 F 109 H 20 148/88 99 05/08/22 16:55 102 H 20 165/98 98 05/08/22 16:31 102 H 16 184/96 98 05/08/22 15:14 100 16 159/91 99 05/08/22 14:48 110 H 16 182/97 99 05/08/22 14:12 105 H 20 167/102 99 05/08/22 12:05 120 H 18 160/58 99 05/08/22 10:50 129 H 18 180/109 98 05/08/22 10:28 97.9 F 116 H 18 146/97 99 Intake and Output 05/08/22 05/09/22 05/09/22 22:59 06:59 14:59 Intake Total 610 118 Balance 610 118 Intake: IV 10 Invasive Line 1 10 Oral 600 118 Other: Voiding Method Toilet Toilet # Voids 1 Weight 139.1 kg Patient is a middle aged male, in no acute distress. Patient is alert awake oriented to time place and person. Speech and language functions are normal. Patient can name and repeat very well. No aphasia or dysarthria. Attention, concentration and fund of knowledge is adequate. On cranial examination, pupils are equal, round and reacting to light, visual mann are full on confrontation, with no neglect on double simultaneous stimulation. His extraocular muscles are intact with no nystagmus. Patient has right facial weakness, peripheral type, but involves the lower part more than the upper. His forehead wrinkling is slightly weaker on the right as compared to left. His tongue protrudes to the midline. Palatal elevation and sensation normal, hearing appears slightly better on the right as compared to left for finger rubbing, although appears almost normal bilaterally. His shoulder shrug normal, facial sensation normal. Shoulder shrug normal. On muscle strength testing, there is no pronator drift and the strength is normal in arms and legs distally and proximally. Deep tendon reflexes are symmetric, 1+ at the biceps, 1+ brachioradialis, 0 at the knees, 0 ankles and plantars downgoing bilaterally. Sensory to touch is equal with no neglect on double simultaneous stimulation. Cerebellar function showed no ataxia for [id number] testing. No dysdiadochokinesia. Tone and bulk of muscles normal. Gait normal. On general examination, there is no carotid bruit or murmur, S1-S2 audible. Abdomen is soft nontender. No organomegaly, bowel sounds present. Chest is clear. Peripheral pulses are present. No edema. Results - Laboratory Findings CBC and BMP: 05/08/22 10:50 08/07/22 10:50 Abnormal Lab Findings: Abnormal Labs 05/08/22 05/08/22 05/08/22 10:50 10:50 10:50 WBC 3.7 L MCHC 30.9 L Lymphocytes # 0.9 L Sodium 132 L Glucose 592 H* POC Glucose (mg/dL) Hemoglobin A1c 10.9 H Alkaline Phosphatase 278 H Total Protein 5.8 L 05/08/22 05/08/22 05/08/22 12:38 13:53 16:06 WBC MCHC Lymphocytes # Sodium Glucose POC Glucose (mg/dL) 479 H 386 H 323 H Hemoglobin A1c Alkaline Phosphatase Total Protein 05/08/22 05/08/22 05/08/22 18:39 18:40 19:44 WBC MCHC Lymphocytes # Sodium Glucose POC Glucose (mg/dL) 283 H 299 H Hemoglobin A1c 10.9 H Alkaline Phosphatase Total Protein 05/09/22 05:52 WBC MCHC Lymphocytes # Sodium Glucose POC Glucose (mg/dL) 278 H Hemoglobin A1c Alkaline Phosphatase Total Protein Assessment and Plan Assessment: * 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 * Diabetes, uncontrolled * History of transient right arm weakness that lasted for a month (about a year ago), rule out remote CVA. 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 * Hypertension * Dyslipidemia * Chronic back pain * Obesity Plan: * Patient has probable right Aguillon's palsy. Prednisone was recommended, but internal medicine did not clear for prednisone because of uncontrolled diabetes. * Patient will be given Valtrex 1 g by mouth 3 times a day for 7 days. * CT head showed old lacunar stroke left basal ganglia. Patient has multiple vascular risk factors. We will start patient on Plavix 75 mg daily. Patient cannot take aspirin because of his ALLERGY to aspirin. * Carotid Doppler, rule out stenosis. * Optimize control of vascular risk factors including A1c, to target < 7.0, treat hyperlipidemia, optimize control of blood pressure. * B12, folate for paresthesias. * For chronic back pain, recommend patient follow up with a neurologist. * Neurologically clear, if carotid Doppler comes back negative. * Thank you for the consult. Carotid Doppler results came back normal. No significant stenosis. Antegrade for both vertebral arteries. B12 437, folate > 20.0. Neurologically clear to be discharged on Plavix 75 mg and other recommendations as mentioned above. A paper prescription of Plavix was provided to the patient. Time with Patient: Greater than 30
[2022-05-09] MEDS ORDERED: CLOPIDOGREL 75 MG TAB PO SCH (13:00)
--- NOTE | 2022-05-09 13:06 | US ---
EXAMINATION TYPE: US carotid duplex BILAT DATE OF EXAM: 05/09/2022 COMPARISON: NONE CLINICAL HISTORY: Facial weakness, rule out CVA. TECHNIQUE: Carotid duplex ultrasound examination. Indirect Doppler criteria was utilized. FINDINGS: EXAM MEASUREMENTS: RIGHT: Peak Systolic Velocity (PSV) cm/sec ----- Right CCA: 73.2 ----- Right ICA: 78.3 ----- Right ECA: 95.8 ICA/CCA ratio: 1.1 RIGHT: End Diastole cm/sec ----- Right CCA: 17.1 ----- Right ICA: 36.9 ----- Right ECA: 14.2 LEFT: Peak Systolic Velocity (PSV) cm/sec ----- Left CCA: 74.0 ----- Left ICA: 81.1 ----- Left ECA: 79.3 ICA/CCA ratio: 1.1 LEFT: End Diastole cm/sec ----- Left CCA: 22.9 ----- Left ICA: 18.2 ----- Left ECA: 15.3 VERTEBRALS (direction of flow): Right Vertebral: Antegrade Left Vertebral: Antegrade Rhythm: Normal DISH MAKER NOTES: Minimal atherosclerotic changes with no significant velocity elevations. IMPRESSION: 1. Intimal thickening without significant flow-limiting stenosis. Criteria for Assigning % of Stenosis / Diameter reduction (Estimation based on the indirect measurements of the internal carotid artery velocities (ICA PSV). 1. Normal (no stenosis)=ICA PSV < 125 cm/s: ratio < 2.0: ICA EDV<40 cm/s. 2. Less than 50% stenosis=ICA PSV < 125 cm/s: ratio < 2.0: ICA EDV<40 cm/s. 3. 50 to 69% stenosis=ICA PSV of 125 to 230 cm/s: ration 2.0 ? 4.0: ICA EDV 40-100 cm/s. 4. Greater than 70% stenosis to near occlusion= ICA PSV > 230 cm/s: ratio > 4.0: ICA EDV > 100 cm/s. 5. Near occlusion= ICA PSV velocities may be low or undetectable: variable ratio and ICA EDV. 6. Total occlusion=unable to detect flow.
[2022-05-09 14:00] VITALS: BP 118/74; PULSE 110; RESP 16
[2022-05-09] MEDS ORDERED: INSULIN DETEMIR (LEVEMIR) 100 UNIT/ML SYR SQ SCH (21:00)
== END 2022-05-09 14:58 | disposition home or self-care (01) | DRG 74 ==
LOC: EC 10:26 → 3SCARD 15:58
PROVIDERS: ADMIT Hospitalist; ATTEND Hospitalist
DX: G51.0 Bell's palsy (principal); Z68.41 Body mass index [BMI] 40.0-44.9, adult; I69.351 Hemiplegia and hemiparesis following cerebral infarction affecting right dominant side; E11.65 Type 2 diabetes mellitus with hyperglycemia; E66.9 Obesity, unspecified; M54.10 Radiculopathy, site unspecified; E78.5 Hyperlipidemia, unspecified; G89.29 Other chronic pain; I10 Essential (primary) hypertension; M48.00 Spinal stenosis, site unspecified; Z51.5 Encounter for palliative care; Z79.4 Long term (current) use of insulin; Z79.84 Long term (current) use of oral hypoglycemic drugs; Z79.899 Other long term (current) drug therapy; Z82.3 Family history of stroke; Z82.49 Family history of ischemic heart disease and other diseases of the circulatory system; Z83.3 Family history of diabetes mellitus; Z91.19 Patient's noncompliance with other medical treatment and regimen; Z88.6 Allergy status to analgesic agent
CPT/HCPCS: 36415; 70450; 71046; 80053; 80061; 80306; 82607; 82746; 83036; 83605; 84484; 85025; 85610; 85730; 87040; 93005; 93880; 96361; 96374; 96375; 99285

== ENCOUNTER 2022-08-05 06:43 | Day surgery (SDC) | payer BC, OTHER ==
[~2022-08-05 06:43] MED LIST: LACTATED RINGERS 1,000 ML IV SCH; LIDOCAINE 1% (10MG/ML) FOR IV START INTRADERMA PRN
[2022-08-05] MEDS ORDERED: ONDANSETRON 4 MG/2 ML VIAL IVP PRN (07:00)
[2022-08-05 07:07] VITALS: TEMP 97
[2022-08-05 07:19] LABS: Glucose,Whole Blood 121 mg/dL (70-110)
[2022-08-05] MEDS ORDERED: MIDAZOLAM 2 MG/2 ML VIAL ONE (07:58)
[2022-08-05] MEDS ORDERED: LIDOCAINE 2% INJ 20 MG/ML (2 ML VIAL) ONE (07:58)
[2022-08-05] MEDS ORDERED: PROPOFOL 10 MG/ML 20 ML VIAL IV ONE (07:58)
[2022-08-05] MEDS ORDERED: fentaNYL (PF) 50 MCG/ML 2 ML AMP ONE (07:58)
--- NOTE | 2022-08-05 08:17 | P.PCN ---
Date of Procedure: 08/05/22 Procedure(s) Performed: Brief history: Patient is a pleasant 47-year-old white male scheduled for an elective upper endoscopy as well as colonoscopy as a part of evaluation of diffuse abdominal pain, intermittent nausea vomiting and change in bowel habits for the last 3 months duration. Procedure performed: Esophagogastroduodenoscopy with biopsy Colonoscopy with snare polypectomy Preoperative diagnosis: Diffuse abdominal pain/intermittent nausea vomiting and change in bowel habits since June of this year Anesthesia: MAC Procedure: After informed consent was obtained from the patient was brought into the endoscopy unit and IV sedation was administered by anesthesia under continuous monitoring. Initially upper endoscopy was done. The Olympus GF 160 video endoscope was inserted inserted into the mouth and esophagus intubated without any difficulty and was gradually advanced into the stomach and duodenum and carefully examined. The bulb of the duodenum had a 1 cm ulcer with a clean base and no active bleeding. The second part of the duodenum appeared normal. The scope was then withdrawn into the stomach adequately insufflated with air and upon careful examination the antrhad mild gastritis and biopsies were also done from this area. The body, cardia and fundus appeared normal. The scope was then withdrawn into the esophagus. The GE junction was located at 40 cm to the incisors. It appeared regular with no erythema erosions or ulcerations. Rest of the esophagus appeared normal. Patient tolerated the procedure well. At this time the patient continued to remain sedation. Initial digital rectal examination was normal. Olympus CF 160 video colonoscope was then inserted into the rectum and gradually advanced to the cecum without any difficulty. Careful examination was performed as the scope was gradually being withdrawn. The prep was excellent. The cecum, ascending colon, transverse colon, descending colon, sigmoid colon and rectum appeared normal. axillary rectum there was a 5 mm polyp that was removed by snare polypectomy. Retroflexion was performed in the rectum and no lesions were noted. Patient tolerated the procedure well. Impression: 1. Upper endoscopy revealed a 1 cm duodenal bulbar ulcer with no active bleeding and gastritis 2. ColoRevealed a 5 mm proximal rectal polyp status post polypectomyecommendations: Findings of this examination were discussed with the patient as well as his family. He started on omeprazole 40 mg daily and was advised to avoid NSAIDs. follow with the biopsy results. If the biopsy reveals adenoma he can have a repeat colonoscopy in 5 years.
[2022-08-05 08:27] VITALS: RESP 16
[2022-08-05 08:39] VITALS: BP 152/95; PULSE 90
== END 2022-08-05 08:55 | disposition home or self-care (01) ==
LOC: ORWHC2ENDO 06:43
PROVIDERS: ATTEND Internal Medicine Gastroenterology
DX: K29.50 Unspecified chronic gastritis without bleeding (principal); D12.8 Benign neoplasm of rectum; K29.80 Duodenitis without bleeding; K26.9 Duodenal ulcer, unspecified as acute or chronic, without hemorrhage or perforation; I10 Essential (primary) hypertension; E78.5 Hyperlipidemia, unspecified; F12.90 Cannabis use, unspecified, uncomplicated; E11.9 Type 2 diabetes mellitus without complications; G51.0 Bell's palsy; Z98.890 Other specified postprocedural states; Z79.84 Long term (current) use of oral hypoglycemic drugs; Z79.899 Other long term (current) drug therapy; Z88.6 Allergy status to analgesic agent
CPT/HCPCS: 88305; 45385; 43239; J2250; J3010; J2704; J2001

== ENCOUNTER → 2022-10-14 | Outpatient (CLI) | payer BC ==
[2022-10-14 14:17] LABS: INR 0.9 (<1.2); Partial Thromboplastin Time 23.1 sec (22.0-30.0); Prothrombin Time 9.9 sec (9.0-12.0)
[2022-10-14 23:10] LABS: HCT 40.3 % (39.6-50.0); HGB 12.9 g/dL (13.0-17.0); MCH 29.7 pg (27.0-32.0); MCV 92.6 fL (80.0-97.0); Mean Platelet Volume 9.6 fL (9.5-12.2); NRBC Per 100 WBC 0 /100 WBCS (0.0-0.0); Platelet Count 166 X 10*3/uL (140-440); RBC 4.35 X 10*6/uL (4.40-5.60); RDW 14.3 % (11.5-14.5); WBC 4.16 X 10*3/uL (4.50-10.00)
[2022-10-14 23:15] LABS: African American GFR (CKD) 105.2 (60.0-200.0); Albumin 4.4 g/dL (3.8-4.9); Albumin/Globulin Ratio 3.08 (1.60-3.17); Anion Gap 11.4 mmol/L (10.00-18.00); BUN/Creat Ratio 13.21 Ratio (12.00-20.00); Blood Urea Nitrogen 13.1 mg/dL (9.0-27.0); Calcium 9.1 mg/dL (8.7-10.3); Carbon Dioxide 26.2 mmol/L (20.0-27.5); Globulin 1.4 g/dL (1.6-3.3); Non-African American GFR(CKD) 90.7 (60.0-200.0); Potassium 4.1 mmol/L (3.5-5.5); Total Bilirubin 0.7 mg/dL (0.30-1.20); Total Protein 5.9 g/dL (6.2-8.2)
[2022-10-15 01:40] LABS: Appearance,Urine Clear (Clear); Bilirubin,Urine Negative (Negative); Blood,Urine Negative (Negative); Color,Urine Yellow (Yellow); Ketones,Urine Negative (Negative); Nitrite,Urine Negative (Negative); Specific Gravity,Urine 1.023 (1.001-1.030)
== END | disposition home or self-care (01) ==
LOC: LABPAT 12:47
PROVIDERS: ATTEND Orthopaedic Surgery
DX: Z01.818 Encounter for other preprocedural examination (principal); M16.12 Unilateral primary osteoarthritis, left hip
CPT/HCPCS: 36415; 80053; 81003; 85027; 85610; 85730; 87070; 93005

== ENCOUNTER 2022-10-25 07:37 | Observation (INO) | payer BC, OTHER ==
[~2022-10-25 07:37] MED LIST changes: +ACETAMINOPHEN TAB 500 MG TAB PO PRN; +GABAPENTIN 300 MG CAP PO PRN; -LACTATED RINGERS 1,000 ML IV SCH; -LIDOCAINE 1% (10MG/ML) FOR IV START INTRADERMA PRN; +MELOXICAM 7.5 MG TAB PO PRN; +TRANEXAMIC ACID IN NACL,ISO-OS 1,000 MG in SALINE 1 100ML.BAG IVPB PRN; +ceFAZolin 3 GM in SODIUM CHLORIDE 0.9% 100 ML IVPB PRN
[2022-10-25] MEDS ORDERED: ONDANSETRON 4 MG/2 ML VIAL IVP ONE (07:46)
[2022-10-25] MEDS ORDERED: DEXAMETHASONE SOD PHOSPHATE 4 MG/ML 1 ML VIAL IV ONE (07:46)
[2022-10-25] MEDS ORDERED: SCOPOLAMINE 1 MG/72 HR PATCH TRANSDERM ONE (07:46)
[2022-10-25] MEDS ORDERED: HYDROmorphone 0.5 MG/0.5 ML SYRINGE IVP PRN ×3 (07:46→08:35)
[2022-10-25] MEDS ORDERED: MIDAZOLAM 2 MG/2 ML VIAL IV PRN (07:46)
[2022-10-25] MEDS: LACTATED RINGERS 1,000 ML IV SCH (08:10)
[2022-10-25 08:11] LABS: Glucose,Whole Blood 182 mg/dL (70-110)
[2022-10-25] MEDS ORDERED: INSULIN ASPART (NovoLOG) 100 UNIT/ML VIAL SQ ONE (08:15)
[2022-10-25] MEDS ORDERED: fentaNYL (PF) 50 MCG/1 ML VIAL IVP ONE (08:19)
[2022-10-25] MEDS ORDERED: MIDAZOLAM 2 MG/2 ML VIAL IVP ONE (08:19)
[2022-10-25] MEDS ORDERED: MAGNESIUM HYDROXIDE 2,400 MG/10 ML CUP PO PRN (08:35)
[2022-10-25] MEDS ORDERED: NALOXONE 0.4 MG/ML 1 ML VIAL IV PRN (08:35)
[2022-10-25] MEDS ORDERED: ONDANSETRON 4 MG/2 ML VIAL IVP PRN (08:35)
[2022-10-25] MEDS ORDERED: HYDROcodone/APAP 7.5-325MG 1 EACH TAB PO PRN (08:37)
[2022-10-25] MEDS ORDERED: SODIUM CHLORIDE 0.9% (PF) 10 ML VIAL ONE (08:50)
[2022-10-25] MEDS ORDERED: ROPIVACAINE 5 MG/ML 30 ML VIAL ONE (08:50)
[2022-10-25] MEDS ORDERED: TRANEXAMIC ACID IN NACL,ISO-OS 1,000 MG/100 ML BAG ONE (08:50)
[2022-10-25] MEDS ORDERED: MIDAZOLAM 2 MG/2 ML VIAL ONE (08:50)
[2022-10-25] MEDS ORDERED: fentaNYL (PF) 50 MCG/ML 2 ML AMP ONE (08:50)
[2022-10-25] MEDS ORDERED: PROPOFOL 10 MG/ML 20 ML VIAL IV ONE (08:50)
[2022-10-25] MEDS ORDERED: ceFAZolin 1,000 MG in SODIUM CHLORIDE 0.9% 1,000 ML IRRIGATION ONE (08:54)
[2022-10-25] MEDS ORDERED: ROPIVACAINE 5 MG/ML 30 ML VIAL MISCELLANE ONE ×2 (10:14→10:26)
--- NOTE | 2022-10-25 10:34 | P.OP ---
Date of Procedure: 10/25/22 Preoperative Diagnosis: Severe osteoarthritis left hip Postoperative Diagnosis: Severe osteoarthritis left hip Procedure(s) Performed: Left total hip arthroplasty with a direct anterior approach Implants: [employer] Polarstem standard size 4 [employer] R3, 3 hole hemispherical acetabular shell, 56 mm [employer] Reflection 6.5 mm cancellus screw, 25 mm 2 [employer] R3, XLPE 20 acetabular liner [employer] Oxinium femoral head 36 m, +4 All components were press-fit. The articulation is Oxinium on polyethylene. Anesthesia: spinal Surgeon: Baljinder Arechiga Nurses Medical Assistants Phlebotomists #1: Helena Aleman Estimated Blood Loss (ml): 500 Pathology: other (Femoral head) Condition: stable Disposition: PACU Indications for Procedure: After failure of conservative treatment we discussed the surgical and nonsurgical treatment options at length. Patient wishes to proceed with a total hip arthroplasty with a direct anterior approach. Complications specific to this procedure were discussed at length, including but not limited to infection, leg length discrepancy, dislocation, nerve injury, and fracture. Covid-19 was also discussed at length with the patient, and they are aware of the current policies and procedures. The patient was given the option of delaying surgery, but they elect to proceed knowing these risks. Patient is aware of all these complications and informed consent was obtained Operative Findings: The operative findings are consistent with severe osteoarthritis the left hip Description of Procedure: The patient was seen and evaluated in the preoperative area and the consent was reviewed. The operative site was marked with a skin marker. The patient verified the procedure and operative site. A LUAN block was placed by oren philippe in the preoperative area. The patient was then brought to the operating room and given preoperative antibiotics intravenously. 1 g of Tranexamic acid was also given intravenously. A spinal anesthetic was administered by the anesthesia department. The patient was then placed on the [place] table with the bony prominences well-padded. The hip area was then prepped with a ChloraPrep solution and draped in the usual sterile fashion. A universal timeout was then performed, which confirmed the patient's name, surgical site, ALLERGIES, and procedure being performed on the consent. Next the incision site was located at 1 cm distal and 4 cm lateral to the anterior superior iliac spine. The skin and subcutaneous tissues were sharply incised. Incision was carefully dissected down to the fascia overlying the tensor fascia alana muscle. This fascia was then incised in line with the muscle fibers. Care was taken to stay laterally in order to avoid injuring the lateral femoral cutaneous nerve. Next, using blunt finger dissection, the tensor fascia alana muscle was dissected off its investing fascia. The muscle was then carefully retracted laterally with a cobra retractor over the lateral neck of the femur. Next, the circumflex vessels were identified and cauterized using the Aquamantis device. The anterior hip capsule was then exposed. The capsule was then opened and an inverted T fashion. The retractors were then placed intracapsularly. The retractors were maintained intracapsular throughout the procedure. The proximal femur was then visualized. Fluoroscopic x-rays were then taken in order to evaluate the preoperative leg lengths. A small amount of traction was placed on the leg. The femoral neck was then osteotomized at the appropriate level above the lesser trochanter. A small wedge of bone was then removed from the remaining femoral head. Next, using a corkscrew the femoral head was removed from the acetabulum. On gross visual inspection, the femoral head had complete loss of articular cartilage and multiple periarticular osteophytes. The femoral head was then measured. Attention was then turned to the acetabulum. The acetabulum was exposed and any remaining labrum was excised. Sequential reaming of the acetabulum was performed using fluoroscopic guidance until there was a good bed of bleeding cancellus bone. When the appropriate size was reached, a trial was then placed. The position and fit of the trial was checked with fluoroscopy. The trial was then removed. Then, using fluoroscopic guidance, the final implant was impacted at 20 of anteversion and 40 of abduction, and fully seated in the acetabulum. 2 screws were then placed in the acetabulum. Again fluoroscopy was used to check position of the screws. Next, the liner was then impacted, with a 20 elevated liner located in the anterior superior quadrant. Component locking was confirmed. Attention was then directed to the femur. With the aid of the [place] table, the femur was externally rotated to approximately 130, extended, and adducted under the opposite leg. A side hook was then placed under the proximal femur, and the side hook elevator was used to elevate the proximal femur while releasing the capsule. Retractors were then placed. A capsular release was performed, as well as a release of the conjoined tendon, which afforded excellent visualizatio n of the proximal femur. Next, a box osteotome was used to lateralize the proximal femur. A hand fretted instrument maker was then used to locate the femoral canal. Sequential broaching was then performed with appropriate size which afforded excellent fixation in the proximal femur. A trial was then placed with appropriate head and neck, and the hip was gently reduced with the aid of the [place] table. Fluoroscopy was then used to check position of the components, as well as to evaluate the leg lengths and offset. The leg lengths and offset were measured as closely as possible to ensure stability of the hip. The hip was then gently dislocated and the trials were then removed. Final implants were then impacted and the hip was again reduced. Final fluoroscopic x-rays confirmed that the components were in anatomic position. The leg lengths and offset were measured and were found to coincide with the trial measurements. The hip was also taken through range of motion, and found to be stable. The hip was then copiously irrigated with antibiotic solution with pulsatile lavage. The hip was then irrigated with Irrisept solution. The soft tissues were then injected with a ropivacaine solution. A second dose of 1 g of Tranexamic acid was also given intravenously. The fascia was then closed with 2-0 strata fix suture. The subcutaneous tissue was closed with 3-0 Vicryl. The subcuticular tissue was closed with 3-0 strata fix suture. The skin was then closed with Exofin skin glue. After the glue and dried, and Optifoam silver impregnated dressing was applied. The patient was then transferred to the recovery room in stable condition. The family medicine physician assistant KYLIE Soliz was required due to the complexity of surgery, and the need for skilled surgical pathologist for positioning, draping, exposure, retraction, and closure of the wound.
[2022-10-25] MEDS ORDERED: LACTATED RINGERS 1,000 ML IV ONE (10:52)
[2022-10-25] MEDS ORDERED: HYDROmorphone 0.5 MG/0.5 ML SYRINGE IVP ONE (11:09)
[2022-10-25 11:26] LABS: Glucose,Whole Blood 158 mg/dL (70-110)
--- NOTE | 2022-10-25 11:43 | XR ---
EXAMINATION TYPE: XR Hip Limited LT DATE OF EXAM: 10/25/2022 Comparison: None Clinical History: 47-year-old male Status post hip surgery, assess surgical alignment Findings: Image shows placement of left hip total arthroplasty. Acetabular cup and femoral stem components of t he prosthesis are well seated without periprosthetic fracture. Alignment grossly anatomic. Scattered soft tissue air related to recent operation. Impression: Uncomplicated postoperative appearance left hip total arthroplasty.
[2022-10-25] MEDS: SODIUM CHLORIDE 0.9% 1,000 ML IV SCH ×2 (12:24→22:44)
[2022-10-25] MEDS: HYDROmorphone 1 MG/ML 1 ML SYRINGE IVP PRN ×4 (12:27→22:45)
--- NOTE | 2022-10-25 13:29 | P.ANPRN ---
Procedure Note - Anesthesia - Nerve Block Performed Left Michael Single Time Out Performed: Yes Date of Procedure: 10/25/22 Procedure Start Time: : Procedure Stop Time: : Location of Patient: PreOp Indication: Acute Post-Operative Pain, Dx/Pain Location, Requested by Surgeon Specifically requested for management of pain by DrDamion: Baljinder Arechiga Sedation Type: Sedate with meaningful contact maintained Preparation: Sterile Prep Position: Supine Catheter: None Needle Types: Pajunk Needle Gauge: 21 (100 mm) Ultrasound used to visualize needle placement: Yes Ultrasound used to observe medication spread: Yes Injectate: 0.5% Ropivacaine (see comment for volume) (20 cc + 10 cc of Normal saline) Blood Aspirated: No Pain Paresthesia on Injection Noted: No Resistance on Injection: Normal Image Stored and Saved: Yes Events: Uneventful and Well Tolerated
[2022-10-25] MEDS: HYDROcodone/APAP 7.5-325MG 1 EACH TAB PO PRN ×2 (13:32→18:57)
[2022-10-25] MEDS ORDERED: DEXTROSE 50% SYRINGE 50 ML IVP PRN ×2 (13:49)
--- NOTE | 2022-10-25 13:52 | P.CONS ---
History of Present Illness - Reason for Consult Consult date: 10/25/22 Medical management Requesting physician: Baljinder Arechiga - History of Present Illness History of Presenting Illness: Patient is a very pleasant 47-year-old male with a past medical history of hypertension, type II sjl-gubcxbs-frrgogrnl diabetes mellitus, and osteoarthritis. He is currently admitted under orthopedic surgery team status post an elective left total hip arthroplasty completed by Dr. Arechiga secondary to severe osteoarthritis of left hip. We have been consulted for medical management throughout patient's hospitalization. Patient seen and fully evaluated at bedside. He currently is reporting uncontrolled pain and states that he simply cannot get comfortable. Order placed for one-time dose of Dilaudid in attempts to gain control of postoperative pain and RN instructed that if one-time extra dose does not result in pain control with current pain medication regimen surgery team to be notified at that time for reevaluation. Patient denies having any postoperative nausea or vomiting, states that he is tolerating oral intake. He denies having any headache, lightheadedness, dizziness, chest pain, palpitations, shortness of breath, or experiencing any focal numbness or weakness. Patient denies history of DVTs or PEs. Review of systems: Pertinent positives and negatives as discussed in HPI, a complete review of systems was performed and all other systems are negative. Physical exam: Vital signs reviewed and stable. General: Nontoxic, no distress and appears stated age. Derm: Skin warm and dry, normal coloration for ethnicity. Head: Atraumatic, normocephalic and symmetric. Eyes: EOMs intact, no lid lag, and anicteric sclera Mouth: no lip lesions, mucus membranes moist Cardiovascular: regular rate and rhythm with normal S1S2, no murmur, positive posterior tibial pulses bilaterally, and cap refill < 2 seconds. Lungs: Respirations even, regular, and unlabored on room air. Lungs CTA bilaterally, no rhonchi, no rales, no wheezing, and no accessory muscle usage. Abdominal: soft, nontender to palpation, no guarding, no appreciable organomegaly Ext: ROM intact. No gross muscle atrophy, no edema, no contractures Neuro: Speech clear, face symmetrical and CN II-XII grossly intact with no noted focal neuro deficits Psych: Alert and oriented to person, place, time, and situation. Appropriate and pleasant affect. Assessment and Plan of Care: Status post left total hip arthroplasty -Management per primary admitting orthopedic surgery team including DVT p rophylaxis, pain management, wound/dressing care, weightbearing, and PT/OT. -DVT prophylaxis currently with Eliquis. Uncontrolled postoperative pain -Patient receiving [place] and Dilaudid as ordered per primary admitting orthopedic surgery team. -Patient to receive 1 additional dose of Dilaudid 1 mg IVP in attempts to obtain postoperative pain management. RN was instructed that if additional dose does not result in improvement of pain, orthopedic surgical team to be notified for reevaluation. Type II ygo-ssddrao-kqvwrnikr diabetes mellitus with hyperglycemia -Hold Trulicity and metformin in place patient on glycemic protocol with NovoLog sliding scale to obtain tight glycemic control throughout hospitalization. Hypertension -Monitor vital signs and continue daily medication regimen with amlodipine and losartan, Hyperlipidemia -Continue daily medication regimen with fenofibrate. -Recommend heart healthy and carb consistent diet. Thank you for allowing us to participate in the care of this pleasant patient. Do not hesitate to contact us with questions. Someone can be reached from the [facility] hospitalist group all hours of the day at [phone] or via [employer]. Jn Alicea NP rendered care for this patient independently, reviewed the findings and plan as documented in the note above. I did not physically speak with or examine the patient on this date. Past Medical History Past Medical History: Diabetes Mellitus, GERD/Reflux, Hyperlipidemia, Hypertension, Osteoarthritis (OA) Additional Past Medical History / Comment(s): hx. Lakin' palsy-now resolved, hx. ulcer, takes valtrex for cold sores, none currently History of Any Multi-Drug Resistant Organisms: MRSA Year Discovered:: 04/2021 MDRO Source:: nose Past Surgical History: Orthopedic Surgery Additional Past Surgical History / Comment(s): Had L thumb reattached as a kid. wisdom teeth removed, EGD, colonoscopy Past Anesthesia/Blood Transfusion Reactions: No Reported Reaction Additional Past Anesthesia/Blood Transfusion Reaction / Comm: No hx of blood transfusion Past Psychological History: No Psychological Hx Reported Smoking Status: Never smoker Past Alcohol Use History: Occasional Additional Past Alcohol Use History / Comment(s): Social Drinker Past Drug Use History: Marijuana Additional Drug Use History / Comment(s): not used in last 2 months - Past Family History Father Family Medical History: Congestive Heart Failure (CHF), Diabetes Mellitus, Hypertension Mother Family Medical History: Hypertension Additional Family Medical History / Comment(s): Patients Grandmother had first CVA at 38, CVA at 43. Patients Aunt on mothers side has had multiple PEs and DVTs Brother(s) Family Medical History: CVA/TIA Additional Family Medical History / Comment(s): CVA at 44 Sister(s) Family Medical History: No Reported History Medications and Allergies Home Medications Medication Instructions Recorded Confirmed Type Gabapentin [Neurontin] 300 mg PO TID 05/06/22 10/20/22 History metFORMIN HCL [Glucophage] 1,000 mg PO BID 05/06/22 10/20/22 History [place]-3/Dha/Epa/Fish Oil [Fish Oil 1 cap PO DAILY 05/08/22 10/25/22 History 1,000 mg Softgel] Dulaglutide [Trulicity] 0.75 mg SQ MO 08/03/22 10/20/22 History Fenofibrate Nanocrystallized 145 mg PO DAILY 08/03/22 10/20/22 History [Tricor] Losartan [Cozaar] 100 mg PO DAILY 08/03/22 10/20/22 History traMADol HCL 50 mg PO TID PRN 08/03/22 10/20/22 History valACYclovir HCL [Valtrex] 500 mg PO DAILY 08/03/22 10/20/22 History Omeprazole [PriLOSEC] 40 mg PO DAILY 10/20/22 10/20/22 History amLODIPine [Norvasc] 10 mg PO DAILY 10/20/22 10/20/22 History Apixaban [Eliquis] 2.5 mg PO BID 35 Days #70 tab 10/25/22 Rx HYDROcodone/APAP 7.5-325MG [[place] 1 - 2 tab PO Q6H PRN #32 tab 10/25/22 Rx 7.5-325] Sennosides [Senokot] 2 tab PO DAILY PRN #60 tablet 10/25/22 Rx Allergies Allergy/AdvReac Type Severity Reaction Status Date / Time aspirin Allergy Rash/Hives Verified 10/25/22 07:47 ibuprofen [From Motrin] Allergy Rash/Hives Verified 10/25/22 07:47 Physical Exam Osteopathic Statement: *. No significant issues noted on an osteopathic structural exam other than those noted in the History and Physical/Consult. Vitals: Vital Signs Temp Pulse Resp BP Pulse Ox 10/25/22 13:39 85 16 123/84 100 10/25/22 13:37 80 16 116/78 100 10/25/22 13:36 82 16 118/78 96 10/25/22 13:05 85 16 122/82 96 10/25/22 12:20 77 16 119/76 100 10/25/22 11:55 97.5 F L 81 16 102/72 100 10/25/22 11:37 77 12 113/67 94 L 10/25/22 11:22 80 15 127/60 96 10/25/22 11:07 82 17 119/84 97 10/25/22 10:52 85 16 119/73 99 10/25/22 08:39 93 16 143/88 99 10/25/22 07:52 97 F L 90 16 155/94 100 Intake and Output 10/24/22 10/25/22 10/25/22 22:59 06:59 14:59 Intake Total 1221 Output Total 500 Balance 721 Intake: IV 1101 Oral 120 Output: Estimated Blood Loss 500 Other: Weight 147 kg Results CBC & Chem 7: 10/25/22 15:37 Labs: Abnormal Lab Results - Last 24 Hours (Table) 10/25/22 10/25/22 Range/Units 08:10 11:25 POC Glucose (mg/dL) 182 H 158 H (70-110) mg/dL
--- NOTE | 2022-10-25 13:57 | FL ---
EXAMINATION TYPE: FL guidance operating room, XR Hip Limited LT DATE OF EXAM: 10/25/2022 CLINICAL HISTORY: Left hip pain and osteoarthritis. TECHNIQUE: Fluoroscopy. Intraoperative limited views left hip. COMPARISON: None. FINDINGS: Fluoroscopic guidance was provided during left hip replacement procedure performed by Dr. Arechiga. A total of 39 seconds of fluoroscopic time was utilized during the procedure and 3 spot im ages was acquired. Intraoperative images show metallic hardware from total left hip arthroplasty satisfactory in positio n on frontal projection. IMPRESSION: As Above.
[2022-10-25] MEDS ORDERED: HYDROmorphone 1 MG/ML 1 ML SYRINGE IVP STA (14:25)
[2022-10-25 16:05] LABS: HCT 33.7 % (39.0-53.0); HGB 11.7 gm/dL (13.0-17.5); MCH 30.4 pg (25.0-35.0); MCHC 34.8 g/dL (31.0-37.0); MCV 87.3 fL (80.0-100.0); Mean Platelet Volume 7.5; Platelet Count 170 k/uL (150-450); Poikilocytosis Slight; RBC 3.86 m/uL (4.30-5.90); RDW 14.3 % (11.5-15.5)
[2022-10-25 16:05] LABS: Glucose,Whole Blood 202 mg/dL (70-110)
[2022-10-25] MEDS: ceFAZolin 3 GM in SODIUM CHLORIDE 0.9% 100 ML IVPB SCH ×2 (16:52→23:49)
[2022-10-25] MEDS: INSULIN ASPART (NovoLOG) 100 UNIT/ML VIAL SQ SCH ×2 (16:53→22:44)
[2022-10-25] MEDS: SENNOSIDES-DOCUSATE SODIUM 1 EACH TAB PO SCH (19:58)
[2022-10-25 20:47] LABS: Glucose,Whole Blood 159 mg/dL (70-110)
[2022-10-26] MEDS: HYDROcodone/APAP 7.5-325MG 1 EACH TAB PO PRN ×4 (01:18→18:57)
[2022-10-26] MEDS: HYDROmorphone 1 MG/ML 1 ML SYRINGE IVP PRN ×6 (03:17→23:54)
[2022-10-26 06:25] LABS: Glucose,Whole Blood 200 mg/dL (70-110)
[2022-10-26] MEDS: LACTATED RINGERS 1,000 ML IV SCH (07:06)
[2022-10-26] MEDS: PANTOPRAZOLE 40 MG TABLET PO SCH (07:09)
[2022-10-26] MEDS: INSULIN ASPART (NovoLOG) 100 UNIT/ML VIAL SQ SCH ×4 (07:09→20:57)
--- NOTE | 2022-10-26 07:38 | P.DS ---
Providers Expected date of discharge: 10/26/22 Attending physician: Baljinder Arechiga Consults: 10/25/22 08:35 Consult Physician Routine Consulting Provider: Milagros Kevin Consult Reason/Comments: medical management Do you want consulting provider notified?: Yes Primary care physician: Baljinder Britt - Discharge Diagnosis(es) (1) Primary localized osteoarthritis of left hip Current Visit: Yes Status: Acute (2) Status post total replacement of left hip Current Visit: Yes Status: Acute Hospital Course: This is a 47-year-old male with known history of degenerative arthritis of the left hip. The patient presents for evaluation. After discussion and consideration patient elects to proceed with total hip arthroplasty with direct anterior approach. The patient is seen preoperatively by primary care physician and cleared for surgery. Patient is admitted to [facility] on 10/25/2022 for total hip arthroplasty with direct anterior approach. The procedure is performed without complication or sequelae. The patient is doing well postoperatively. Labs and vital signs are stable on day of discharge. On day of discharge patient's hip incision is healing well. There is minimal erythema. There is no drainage noted at this time. There is minimal soft tissue swelling to the hip and thigh. Patient has full foot and ankle motion without difficulty or pain. Neurovascular status to the lower extremity is intact. Patient is discharged to home in good condition. Please see med rec for accurate list of home medications. Plan - Discharge Summary Discharge Rx Participant: Yes New Discharge Prescriptions: New Apixaban [Eliquis] 2.5 mg PO BID 35 Days #70 tab HYDROcodone/APAP 7.5-325MG [[place] 7.5-325] 1 - 2 tab PO Q6H PRN #32 tab PRN Reason: Pain Sennosides [Senokot] 2 tab PO DAILY PRN #60 tablet PRN Reason: Constipation No Action metFORMIN HCL [Glucophage] 1,000 mg PO BID Losartan [Cozaar] 100 mg PO DAILY Omeprazole [PriLOSEC] 40 mg PO DAILY amLODIPine [Norvasc] 10 mg PO DAILY Gabapentin [Neurontin] 300 mg PO TID [place]-3/Dha/Epa/Fish Oil [Fish Oil 1,000 mg Softgel] 1 cap PO DAILY Fenofibrate Nanocrystallized [Tricor] 145 mg PO DAILY Dulaglutide [Trulicity] 0.75 mg SQ MO valACYclovir HCL [Valtrex] 500 mg PO DAILY traMADol HCL 50 mg PO TID PRN PRN Reason: Pain Discharge Medication List Gabapentin [Neurontin] 300 mg PO TID 05/06/22 [History] metFORMIN HCL [Glucophage] 1,000 mg PO BID 05/06/22 [History] [place]-3/Dha/Epa/Fish Oil [Fish Oil 1,000 mg Softgel] 1 cap PO DAILY 05/08/22 [History] Dulaglutide [Trulicity] 0.75 mg SQ MO 08/03/22 [History] Fenofibrate Nanocrystallized [Tricor] 145 mg PO DAILY 08/03/22 [History] Losartan [Cozaar] 100 mg PO DAILY 08/03/22 [History] traMADol HCL 50 mg PO TID PRN 08/03/22 [History] valACYclovir HCL [Valtrex] 500 mg PO DAILY 08/03/22 [History] Omeprazole [PriLOSEC] 40 mg PO DAILY 10/20/22 [History] amLODIPine [Norvasc] 10 mg PO DAILY 10/20/22 [History] Apixaban [Eliquis] 2.5 mg PO BID 35 Days #70 tab 10/25/22 [Rx] HYDROcodone/APAP 7.5-325MG [[place] 7.5-325] 1 - 2 tab PO Q6H PRN #32 tab 10/25/22 [Rx] Sennosides [Senokot] 2 tab PO DAILY PRN #60 tablet 10/25/22 [Rx] Follow up Appointment(s)/Referral(s): Baljinder Arechiga DO [Doctor of Osteopathic Medicine] - 2 Weeks Activity/Diet/Wound Care/Special Instructions: Weightbearing as tolerated with walker. Leave dressing intact. Dressing may be removed by home care nurse or by patient in 7 days. Then change dressing twice daily until follow up. May shower with initial dressing intact and after removal. If dressing become saturated, please remove. Please take Eliquis for 35 days postoperatively to help prevent blood clots. Recommend use of compression stockings daily until follow up to help prevent swelling and blood clots. May remove at night before sleeping. Please follow-up with [facility] in 2 weeks and call with any questions or concerns, . Discharge Disposition: HOME WITH HOME HEALTH SERVICES
[2022-10-26] MEDS ORDERED: KETOROLAC 15 MG/ML 1 ML VIAL IVP PRN (07:53)
[2022-10-26] MEDS ORDERED: NON FORMULARY DRUG (Omega-3/Dha/Epa/Fish Oil [Fish Oil 1,000 Mg Softgel] 1 EACH Capsule) PO SCH (09:00)
[2022-10-26] MEDS: APIXABAN 2.5 MG TABLET PO SCH ×2 (10:29→20:57)
[2022-10-26] MEDS: LOSARTAN 50 MG TAB PO SCH (10:30)
[2022-10-26] MEDS: amLODIPine 10 MG TAB PO SCH (10:30)
[2022-10-26] MEDS: FENOFIBRATE 160 MG TAB PO SCH (10:30)
[2022-10-26 10:43] LABS: Basophils # (A) 0.05 X 10*3/uL (0.00-0.10); Basophils % (A) 0.7 %; Eosinophils # (A) 0.01 X 10*3/uL (0.04-0.35); Eosinophils % (A) 0.1 %; HCT 33.8 % (39.6-50.0); Immature Grans, Automated 0.4 %; Lymphocytes % (A) 24.4 %; MCH 29.6 pg (27.0-32.0); MCHC 32.5 g/dL (32.0-37.0); MCV 90.9 fL (80.0-97.0); Mean Platelet Volume 9.7 fL (9.5-12.2); Monocytes # (A) 0.87 X 10*3/uL (0.20-1.00); Monocytes % (A) 11.8 %; NRBC Per 100 WBC 0 /100 WBCS (0.0-0.0); Neutrophils # (A) 4.62 X 10*3/uL (1.80-7.70); Neutrophils % (A) 62.6 %; Platelet Count 172 X 10*3/uL (140-440); RBC 3.72 X 10*6/uL (4.40-5.60); RDW 13.8 % (11.5-14.5); WBC 7.38 X 10*3/uL (4.50-10.00)
[2022-10-26 11:24] LABS: Glucose,Whole Blood 196 mg/dL (70-110)
[2022-10-26 14:05] LABS: African American GFR (CKD) >90 (>60 ml/min/1.73 sqM); Anion Gap 3 mmol/L; Blood Urea Nitrogen 17 mg/dL (9-20); Calcium 8.2 mg/dL (8.4-10.2); Carbon Dioxide 29 mmol/L (22-30); Chloride 102 mmol/L (98-107); Creatine Kinase 768 U/L (55-170); Glucose 223 mg/dL (74-99); Non-African American GFR(CKD) 86 (>60 ml/min/1.73 sqM); Potassium 4.1 mmol/L (3.5-5.1); Sodium 134 mmol/L (137-145)
--- NOTE | 2022-10-26 15:18 | CT ---
EXAMINATION TYPE: CT chest angio for PE DATE OF EXAM: 10/26/2022 COMPARISON: None HISTORY: fever, post op CT DLP: 994.3 mGycm Automated exposure control for dose reduction was used. CONTRAST: CT Chest for pulmonary embolism performed with with IV Contrast, patient injected with 100 cc mL of I sovue 370. FINDINGS: LUNGS: The lungs are grossly clear, there is no concerning parenchymal mass or nodule identified. T here is no pleural effusion or pneumothorax seen. The tracheobronchial tree is patent. MEDIASTINUM: Pulmonary artery opacification is suboptimal, but there are no large central or segmenta l pulmonary emboli. There are no greater than 1 cm hilar or mediastinal lymph nodes. No pericardial effusion is seen. OTHER: No additional significant abnormality is seen. IMPRESSION: No pulmonary embolism or other acute process.
--- NOTE | 2022-10-26 15:22 | P.PN ---
Subjective Progress Note Date: 10/26/22 Hospital course: Patient is a very pleasant 47-year-old male with a past medical history of hypertension, type II xsw-fjddsqv-wwrxwnxol diabetes mellitus, and oste oarthritis. He is currently admitted under orthopedic surgery team status post an elective left total hip arthroplasty completed by Dr. Arechiga secondary to severe osteoarthritis of left hip. We have been consulted for medical management throughout patient's hospitalization. Physical exam: Patient was seen and fully evaluated at bedside this morning. Overnight patient was noted to have fevers of unknown etiology. 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 Patient however denies having any complaints other than postsurgical pain. Patient's highest elevated temp was documented at 101.2F this morning and has been tachycardic with heart rate in 110s. Patient denies having history of malignant hyperthermia or any previous reactions to anesthesia and denies family history of malignant hyperthermia. He denies having any cough, congestion, sore throat, or experiencing any body aches or pains. Patient's only complaint is left hip/leg pain. Influenza and Covid PCR's were obtained and negative. Patient again spiking elevated temp with reported heart rate and 120s. Order placed for stat EKG. EKG completed revealing sinus tachycardia at 112 bpm with no noted T-wave or ST abnormalities upon personal review. CK elevated at 768. Order placed for CTA chest to rule out PE. CTA chest negative for pulmonary emboli. Patient underwent spinal anesthesia therefore malignant hyperthermia ruled out. Vital signs reviewed and stable. General: Nontoxic, no distress and appears stated age. Derm: Skin warm and dry, normal coloration for ethnicity. Head: Atraumatic, normocephalic and symmetric. Eyes: EOMs intact, no lid lag, and anicteric sclera Mouth: no lip lesions, mucus membranes moist Cardiovascular: regular rate and rhythm with normal S1S2, no murmur, positive posterior tibial pulses bilaterally, and cap refill < 2 seconds. Lungs: Respirations even, regular, and unlabored on room air. Lungs CTA bilaterally, no rhonchi, no rales, no wheezing, and no accessory muscle usage. Abdominal: soft, nontender to palpation, no guarding, no appreciable organomegaly Ext: ROM intact. No gross muscle atrophy, no edema, no contractures Neuro: Speech clear, face symmetrical and CN II-XII grossly intact with no noted focal neuro deficits Psych: Alert and oriented to person, place, time, and situation. Appropriate and pleasant affect. Assessment and Plan of Care: Status post left total hip arthroplasty -Management per primary admitting orthopedic surgery team including DVT prophylaxis, pain management, wound/dressing care, weightbearing, and PT/OT. -DVT prophylaxis currently with Eliquis. Uncontrolled postoperative pain -Patient receiving [place] and Dilaudid as ordered per primary admitting orthopedic surgery team. -Patient to receive 1 additional dose of Dilaudid 1 mg IVP in attempts to obtain postoperative pain management. RN was instructed that if additional dose does not result in improvement of pain, orthopedic surgical team to be notified for reevaluation. Type II dfj-bdtzmrr-xuxpzbegs diabetes mellitus with hyperglycemia -Hold Trulicity and metformin in place patient on glycemic protocol with NovoLog sliding scale to obtain tight glycemic control throughout hospitalization. Hypertension -Monitor vital signs and continue daily medication regimen with amlodipine and losartan, Hyperlipidemia -Continue daily medication regimen with fenofibrate. -Recommend heart healthy and carb consistent diet. Thank you for allowing us to participate in the care of this pleasant patient. Do not hesitate to contact us with questions. Someone can be reached from the [facility] hospitalist group all hours of the day at [phone] or via [employer]. Jn Alicea NP rendered care for this patient independently, reviewed the findings and plan as documented in the note above. I did not physically speak with or examine the patient on this date. Case discussed and FLu/COVID ordered as well as CPK. Patoent asymptomatic. Objective - Vital Signs Vital signs: Vital Signs Temp 101.2 F H 10/26/22 08:00 Pulse 117 H 10/26/22 08:00 Resp 20 10/26/22 08:00 BP 152/84 10/26/22 08:00 Pulse Ox 94 L 10/26/22 08:00 FiO2 Intake & Output 10/25/22 10/26/22 10/26/22 18:59 06:59 18:59 Intake Total 1221 940 Output Total 500 Balance 721 940 Weight 147 kg Intake: IV 1101 Intake, IV Titration 940 Amount Sodium Chloride 0.9% 1, 840 000 ml @ 70 mls/hr IV . [id number] [facility] Rx#:[id number] ceFAZolin 3 gm In Sodium 100 Chloride 0.9% 100 ml @ 200 mls/hr IVPB Q8HR [facility] Rx#:[id number] Oral 120 Output: Urine 0 Estimated Blood Loss 500 Other: Voiding Method Toilet # Voids 1 - Labs CBC & Chem 7: 10/26/22 05:57 10/26/22 13:36 Labs: Abnormal Lab Results - Last 24 Hours (Table) 10/25/22 10/25/22 10/25/22 Range/Units 11:25 15:37 16:04 RBC 3.86 L (4.30-5.90) m/uL Hgb 11.7 L (13.0-17.5) gm/dL Hct 33.7 L (39.0-53.0) % POC Glucose (mg/dL) 158 H 202 H (70-110) mg/dL 10/25/22 10/26/22 Range/Units 20:45 06:24 RBC (4.30-5.90) m/uL Hgb (13.0-17.5) gm/dL Hct (39.0-53.0) % POC Glucose (mg/dL) 159 H 200 H (70-110) mg/dL
[2022-10-26 17:01] LABS: Glucose,Whole Blood 203 mg/dL (70-110)
[2022-10-26] MEDS: SODIUM CHLORIDE 0.9% 1,000 ML IV SCH (20:31)
[2022-10-26 20:37] LABS: Glucose,Whole Blood 225 mg/dL (70-110)
[2022-10-26] MEDS: SENNOSIDES-DOCUSATE SODIUM 1 EACH TAB PO SCH (20:57)
[2022-10-27] MEDS: HYDROmorphone 1 MG/ML 1 ML SYRINGE IVP PRN (03:18)
[2022-10-27] MEDS: SODIUM CHLORIDE 0.9% 1,000 ML IV SCH (04:21)
[2022-10-27 06:32] LABS: Glucose,Whole Blood 214 mg/dL (70-110)
[2022-10-27] MEDS: PANTOPRAZOLE 40 MG TABLET PO SCH (06:45)
[2022-10-27] MEDS: HYDROcodone/APAP 7.5-325MG 1 EACH TAB PO PRN ×2 (06:45→13:00)
[2022-10-27] MEDS: INSULIN ASPART (NovoLOG) 100 UNIT/ML VIAL SQ SCH ×2 (06:45→12:10)
[2022-10-27 07:47] VITALS: BP 167/82; PULSE 108; RESP 16; TEMP 98.8
[2022-10-27] MEDS: LACTATED RINGERS 1,000 ML IV SCH (08:20)
[2022-10-27] MEDS: amLODIPine 10 MG TAB PO SCH (08:24)
[2022-10-27] MEDS: APIXABAN 2.5 MG TABLET PO SCH (08:24)
[2022-10-27] MEDS: LOSARTAN 50 MG TAB PO SCH (08:24)
[2022-10-27] MEDS: FENOFIBRATE 160 MG TAB PO SCH (08:24)
--- NOTE | 2022-10-27 10:54 | P.DS ---
Providers Date of admission: 10/27/22 07:41 Expected date of discharge: 10/27/22 Attending physician: Baljinder Arechiga Consults: 10/25/22 08:35 Consult Physician Routine Consulting Provider: Milagros Kevin Consult Reason/Comments: medical management Do you want consulting provider notified?: Yes Primary care physician: Baljinder Britt - Discharge Diagnosis(es) (1) Primary localized osteoarthritis of left hip Current Visit: Yes Status: Acute (2) Status post total replacement of left hip Current Visit: Yes Status: Acute Hospital Course: This is a 47-year-old male with known history of degenerative arthritis of the left hip. The patient presented for evaluation as an outpatient. After discussion and consideration patient elects to proceed with total hip arthroplasty. The patient is seen preoperatively by Dr. Arechiga and medically cleared for surgery by their primary care physician. Patient is admitted to [facility] on 10/25/2022 for total hip arthroplasty. The procedure is performed without complication or sequelae. The patient is doing well postoperatively. Labs and vital signs are stable on day of discharge. Patient did develop a fever postoperatively and tested negative for pulmonary embolism via CT scan. Patient also tested negative for influenza and covid. Patient is afebrile on day of discharge. On day of discharge patient's hip incision is healing well. There is minimal erythema. There is no drainage noted at this time. There is minimal soft tissue swelling to the hip and thigh. Patient has full foot and ankle motion without difficulty or pain. Calf is soft and nontender to palpation. Neurovascular status to the left lower extremity is intact. Patient is discharged home in good condition. Please see med rec for accurate list of home medications. Plan - Discharge Summary Discharge Rx Participant: Yes New Discharge Prescriptions: New Apixaban [Eliquis] 2.5 mg PO BID 35 Days #70 tab HYDROcodone/APAP 7.5-325MG [[place] 7.5-325] 1 - 2 tab PO Q6H PRN #32 tab PRN Reason: Pain Sennosides [Senokot] 2 tab PO DAILY PRN #60 tablet PRN Reason: Constipation Continue metFORMIN HCL [Glucophage] 1,000 mg PO BID Losartan [Cozaar] 100 mg PO DAILY Omeprazole [PriLOSEC] 40 mg PO DAILY amLODIPine [Norvasc] 10 mg PO DAILY Gabapentin [Neurontin] 300 mg PO TID [place]-3/Dha/Epa/Fish Oil [Fish Oil 1,000 mg Softgel] 1 cap PO DAILY Fenofibrate Nanocrystallized [Tricor] 145 mg PO DAILY Dulaglutide [Trulicity] 0.75 mg SQ MO valACYclovir HCL [Valtrex] 500 mg PO DAILY traMADol HCL 50 mg PO TID PRN PRN Reason: Pain Discharge Medication List Gabapentin [Neurontin] 300 mg PO TID 05/06/22 [History] metFORMIN HCL [Glucophage] 1,000 mg PO BID 05/06/22 [History] [place]-3/Dha/Epa/Fish Oil [Fish Oil 1,000 mg Softgel] 1 cap PO DAILY 05/08/22 [History] Dulaglutide [Trulicity] 0.75 mg SQ MO 08/03/22 [History] Fenofibrate Nanocrystallized [Tricor] 145 mg PO DAILY 08/03/22 [History] Losartan [Cozaar] 100 mg PO DAILY 08/03/22 [History] traMADol HCL 50 mg PO TID PRN 08/03/22 [History] valACYclovir HCL [Valtrex] 500 mg PO DAILY 08/03/22 [History] Omeprazole [PriLOSEC] 40 mg PO DAILY 10/20/22 [History] amLODIPine [Norvasc] 10 mg PO DAILY 10/20/22 [History] Apixaban [Eliquis] 2.5 mg PO BID 35 Days #70 tab 10/25/22 [Rx] HYDROcodone/APAP 7.5-325MG [[place] 7.5-325] 1 - 2 tab PO Q6H PRN #32 tab 10/25/22 [Rx] Sennosides [Senokot] 2 tab PO DAILY PRN #60 tablet 10/25/22 [Rx] Follow up Appointment(s)/Referral(s): [facility], [NON-STAFF] - ([facility] will call you to arrange a visit. ) Baljinder Arechiga DO [Doctor of Osteopathic Medicine] - 11/09/22 9:50 am Activity/Diet/Wound Care/Special Instructions: Weightbearing as tolerated with walker. Leave dressing intact. Dressing may be removed by home care nurse or by patient in 7 days. Then change dressing twice daily until follow up. May shower with initial dressing intact and after removal. If dressing become saturated, please remove. Please take Eliquis for 35 days postoperatively to help prevent blood clots. Recommend use of compression stockings daily until follow up to help prevent swelling and blood clots. May remove at night before sleeping. Please follow-up with [facility] in 2 weeks and call with any questions or concerns, .
[2022-10-27 11:45] LABS: Glucose,Whole Blood 215 mg/dL (70-110)
--- NOTE | 2022-10-27 13:24 | P.PN ---
Subjective Progress Note Date: 10/27/22 Hospital course: Patient is a very pleasant 47-year-old male with a past medical history of hypertension, type II mjh-vephyli-qvvnkmivj diabetes mellitus, and oste oarthritis. He is currently admitted under orthopedic surgery team status post an elective left total hip arthroplasty completed by Dr. Arechiga secondary to severe osteoarthritis of left hip. We have been consulted for medical management throughout patient's hospitalization. Physical exam: Patient seen and fully evaluated at the bedside. Patient has remained afebrile 24 hours. Heart rate 104 this morning. Tachycardia is believed to be associated with uncontrolled pain. RN reports this is discussed with orthopedic surgery whom will be managing postoperative pain medications and prescriptions upon discharge. Patient denies having any complaints including headache, lightheadedness, dizziness, chest pain, palpitations, shortness of breath, abdominal pain, nausea, vomiting, or experiencing any numbness/tingling/focal weakness in his extremities. Vital signs stable. Medically, patient is stable for discharge. Vital signs reviewed and stable. General: Nontoxic, no distress and appears stated age. Derm: Skin warm and dry, normal coloration for ethnicity. Head: Atraumatic, normocephalic and symmetric. Eyes: EOMs intact, no lid lag, and anicteric sclera Mouth: no lip lesions, mucus membranes moist Cardiovascular: regular rate and rhythm with normal S1S2, no murmur, positive posterior tibial pulses bilaterally, and cap refill < 2 seconds. Lungs: Respirations even, regular, and unlabored on room air. Lungs CTA bilaterally, no rhonchi, no rales, no wheezing, and no accessory muscle usage. Abdominal: soft, nontender to palpation, no guarding, no appreciable organomegaly Ext: ROM intact. No gross muscle atrophy, no edema, no contractures Neuro: Speech clear, face symmetrical and CN II-XII grossly intact with no noted focal neuro deficits Psych: Alert and oriented to person, place, time, and situation. Appropriate and pleasant affect. Assessment and Plan of Care: Status post left total hip arthroplasty -Management per primary admitting orthopedic surgery team including DVT prophylaxis, pain management, wound/dressing care, weightbearing, and PT/OT. -DVT prophylaxis currently with Eliquis. Postoperative fever and tachycardia -Influenza A, influenza B, and Covid PCR negative. -EKG normal sinus rhythm. -CT PE negative -Patient has remained afebrile for greater than 24 hours. -Tachycardia developed postsurgical and believed to be related to postoperative pain. Uncontrolled postoperative pain -Patient receiving [place] and Dilaudid as ordered per primary admitting orthopedic surgery team. Type II [id number]-lkuoopzmj diabetes mellitus with hyperglycemia -Hold Trulicity and metformin in place patient on glycemic protocol with NovoLog sliding scale to obtain tight glycemic control throughout hospitalization. Hypertension -Monitor vital signs and continue daily medication regimen with amlodipine and losartan, Hyperlipidemia -Continue daily medication regimen with fenofibrate. -Recommend heart healthy and carb consistent diet. Thank you for allowing us to participate in the care of this pleasant patient. Do not hesitate to contact us with questions. Someone can be reached from the [facility] hospitalist group all hours of the day at [phone] or via [employer]. I reviewed the documentation as provided by the MIREYA above, who is the original author of this note. I agree with the documented assessment and plan, with the following changes: none Objective - Vital Signs Vital signs: Vital Signs Temp 98.8 F 10/27/22 07:46 Pulse 108 H 10/27/22 08:33 Resp 16 10/27/22 08:33 BP 167/82 10/27/22 07:46 Pulse Ox 96 10/27/22 07:46 FiO2 Intake & Output 10/26/22 10/27/22 10/27/22 18:59 06:59 18:59 Intake Total 240 Output Total 2 Balance 238 Intake: Oral 240 Output: Urine 2 Other: Voiding Method Toilet Toilet # Voids 1 - Labs CBC & Chem 7: 10/26/22 05:57 10/26/22 13:36 Labs: Abnormal Lab Results - Last 24 Hours (Table) 10/26/22 10/26/22 10/26/22 Range/Units 05:57 11:22 13:36 RBC 3.72 L (4.40-5.60) X 10*6/uL Hgb 11.0 L (13.0-17.0) g/dL Hct 33.8 L (39.6-50.0) % Eosinophils # 0.01 L (0.04-0.35) X 10*3/uL Sodium 134 L (137-145) mmol/L Glucose 223 H (74-99) mg/dL POC Glucose (mg/dL) 196 H (70-110) mg/dL Calcium 8.2 L (8.4-10.2) mg/dL Creatine Kinase 768 H (55-170) U/L 10/26/22 10/26/22 10/27/22 Range/Units 17:00 20:36 06:31 RBC (4.40-5.60) X 10*6/uL Hgb (13.0-17.0) g/dL Hct (39.6-50.0) % Eosinophils # (0.04-0.35) X 10*3/uL Sodium (137-145) mmol/L Glucose (74-99) mg/dL POC Glucose (mg/dL) 203 H 225 H 214 H (70-110) mg/dL Calcium (8.4-10.2) mg/dL Creatine Kinase (55-170) U/L
== END 2022-10-27 13:09 | disposition home health service (06) ==
LOC: OR 07:37 → 4SSUR 10:53 → OR 10-27 07:25 → 4SSUR 10-27 07:41
PROVIDERS: ADMIT Orthopaedic Surgery; ATTEND Orthopaedic Surgery
DX: M16.12 Unilateral primary osteoarthritis, left hip (principal); I10 Essential (primary) hypertension; E78.5 Hyperlipidemia, unspecified; R50.82 Postprocedural fever; E11.9 Type 2 diabetes mellitus without complications; G51.0 Bell's palsy; Z97.3 Presence of spectacles and contact lenses; I77.6 Arteritis, unspecified; Z20.822 Contact with and (suspected) exposure to COVID-19; Z83.3 Family history of diabetes mellitus; Z82.49 Family history of ischemic heart disease and other diseases of the circulatory system; K21.9 Gastro-esophageal reflux disease without esophagitis; Z79.84 Long term (current) use of oral hypoglycemic drugs; Z79.85 Long-term (current) use of injectable non-insulin antidiabetic drugs; Z79.01 Long term (current) use of anticoagulants; Z79.891 Long term (current) use of opiate analgesic; Z79.899 Other long term (current) drug therapy; Z88.6 Allergy status to analgesic agent
CPT/HCPCS: 93005; 97116; 97161; 97535; 97166; 64447; 76942; 86900; 86901; 80048; 82550; 85025; 85027; 86850; 88300; 87502; 87635; 73501; 71275; 27130; G0378; C1776; J2250; J0690 ×2; J2405; J3010 ×2; J1170 ×4; J2795; J2704; Q9967

== ENCOUNTER → 2023-02-24 | Outpatient (CLI) | payer SELFPAY ==
--- NOTE | 2023-02-24 14:52 | XR ---
EXAMINATION TYPE: XR Hip Complete LT DATE OF EXAM: 02/24/2023 CLINICAL HISTORY: Left hip pain. TECHNIQUE: AP and frogleg views of the left hip are obtained. COMPARISON: Left hip x-ray October 25, 2022 FINDINGS: There is no acute fracture/dislocation evident in the left hip. Metallic hardware from lef t hip prosthesis remains stable and satisfactory in position. Some developing heterotopic ossificatio n in the soft tissue is noted. IMPRESSION: As above.
== END | disposition home or self-care (01) ==
LOC: RADXRYALE 10:54
PROVIDERS: ATTEND Physician Assistant
DX: M25.552 Pain in left hip (principal)
CPT/HCPCS: 73502